=== PATIENT | male | born 1975 | race Two or more races ===

== ENCOUNTER 2019-05-02 11:08 | Inpatient (IN) | payer SELFPAY ==
[~2019-05-02] VITALS: Ht 190.5 cm; Wt 118.5 kg
[2019-05-02] MEDS ORDERED: SODIUM CHLORIDE 0.9% 1,000 ML IV ONE ×2 (11:21→13:15)
[2019-05-02] MEDS ORDERED: InsuLIN REG 1unit/0.01ml Soln (100units/ml) IV ONE (11:30)
[2019-05-02] MEDS ORDERED: ONDANSETRON HCL 4 MG/2 ML VIAL IV ONE (11:30)
[2019-05-02 12:00] LABS: Basophils # (auto) 0.1 uL; Basophils % (auto) 0.7 % (0.0-2.0); Eosinophils # (auto) 0.5 uL; Eosinophils % (auto) 2.8 % (0.0-7.0); Hematocrit 42.9 % (41.0-53.0); Lymphocytes # (auto) 0.9 uL; Lymphocytes % (auto) 5.8 % (10.0-50.0); Mean Corpuscular Hemoglobin 29.2 pg (28.0-32.0); Mean Corpuscular Hgb Conc. 32.7 g/dL (32.0-36.0); Mean Corpuscular Volume 89.4 fL (80.0-100.0); Monocytes # (auto) 1.2 uL; Monocytes % (auto) 7.4 % (0.0-12.0); Neutrophils # (auto) 13.5 uL; Neutrophils % (auto) 83.3 % (37.0-80.0); Platelet Count (auto) 371 10^3/uL (140-450); Red Cell Distribution Width 13.6 % (11.8-14.3); White Blood Cell 16.2 10^3/uL (4.4-10.8)
[2019-05-02 12:18] LABS: Calcium 8.2 mg/dL (8.5-10.1); Potassium 4.4 mmol/L (3.5-5.1)
[2019-05-02 12:23] LABS: BUN/Creatinine Ratio 16.7; Bilirubin, Total 0.4 mg/dL (0.2-1.0); Total Protein 7.5 g/dL (6.4-8.2)
[2019-05-02 12:31] LABS: Urine Bacteria NONE SEEN /hpf (None Seen); Urine Blood 1+ /uL (Negative); Urine Budding Yeast OCCASIONAL /hpf (None Seen); Urine Hyaline Cast FEW /lpf (0 - 2); Urine Mucus FEW (None Seen); Urine Specific Gravity 1.025 (1.001-1.035); Urine WBC 1 /hpf (0 - 3)
[2019-05-02] MEDS ORDERED: InsuLIN R (HUMAN) 100 UNITS in SODIUM CHL 0.9% 99 ML IV SCH (13:02)
[2019-05-02] MEDS ORDERED: DEXTROSE (50%) 50ML SYRG IV PRN ×2 (13:15→15:30)
[2019-05-02] MEDS ORDERED: ACCU-CHEK COMFORT CURVE STRIP VI SCH (13:30)
[2019-05-02] MEDS ORDERED: traMADol HCL 50 MG TAB PO PRN (15:30)
[2019-05-02] MEDS ORDERED: ALBUTEROL SULF 2.5 MG/0.5ML(0.5%) NEB SOLN NEB PRN (15:30)
[2019-05-02] MEDS ORDERED: cefTRIAXone 1GM/50ML D5W 50 ML IV ONE (15:30)
[2019-05-02] MEDS ORDERED: AZITHROMYCIN 500MG/ 250ML 250 ML IV ONE (15:30)
[2019-05-02] MEDS ORDERED: MORPHINE SULF INJ 2 MG/ML SYRINGE 1ML IV PRN (15:30)
[2019-05-02] MEDS ORDERED: NITROGLYCERIN 0.4 MG SL TAB SL PRN (15:30)
[2019-05-02] MEDS ORDERED: TEMAZEPAM 15 MG CAP PO PRN (15:30)
[2019-05-02] MEDS: InsuLIN R (HUMAN) 100 UNITS in SODIUM CHL 0.9% 99 ML IV SCH ×3 (15:34→18:37)
[2019-05-02] MEDS: SODIUM CHLORIDE 0.9% 1,000 ML IV SCH ×3 (15:35→21:32)
[2019-05-02] MEDS ORDERED: VANCOMYCIN PER PHARMACY 0 MG IV SCH (15:45)
[2019-05-02] MEDS ORDERED: VANCOMYCIN 1GM/250ML 250 ML IV ONE (15:45)
[2019-05-02] MEDS: ACETAMINOPHEN 500 MG TAB PO PRN (16:03)
[2019-05-02] MEDS: ACCU-CHEK COMFORT CURVE STRIP VI SCH ×5 (16:52→22:34)
[2019-05-02 17:20] LABS: BUN/Creatinine Ratio 14.3; Calcium 7.2 mg/dL (8.5-10.1)
[2019-05-02] MEDS: LEVOFLOXACIN 500MG 100 ML IV SCH (18:22)
[2019-05-02] MEDS ORDERED: diphenhdrAMINE HCL 50 MG/1 ML VL IV ONE (18:45)
[2019-05-02] MEDS ORDERED: methylPREDNISolone SOD SUCC 40 MG/ML VL IV ONE (18:45)
[2019-05-02] MEDS: ALBUTEROL SULF 2.5 MG/0.5ML(0.5%) NEB SOLN NEB SCH (19:10)
[2019-05-02] MEDS ORDERED: SODIUM CHLORIDE 0.9% 1,000 ML IV SCH (19:23)
[2019-05-02 21:41] LABS: BUN/Creatinine Ratio 16.2; Calcium 7.4 mg/dL (8.5-10.1); Potassium 3.9 mmol/L (3.5-5.1)
[2019-05-02] MEDS: CLINDAMYCIN 600MG IV 50 ML IV SCH (22:34)
[2019-05-02 22:36] VITALS: BP 121/75
[2019-05-03] MEDS: ACCU-CHEK COMFORT CURVE STRIP VI SCH ×16 (00:19→22:42)
[2019-05-03] MEDS: ACETAMINOPHEN 500 MG TAB PO PRN ×2 (00:48→20:40)
[2019-05-03] MEDS: ALBUTEROL SULF 2.5 MG/0.5ML(0.5%) NEB SOLN NEB SCH ×4 (01:08→18:18)
[2019-05-03] MEDS: SODIUM CHLORIDE 0.9% 1,000 ML IV SCH ×2 (04:22→10:31)
[2019-05-03] MEDS: CLINDAMYCIN 600MG IV 50 ML IV SCH (05:14)
[2019-05-03 05:22] LABS: Basophils # (auto) 0.1 uL; Eosinophils # (auto) 0.1 uL; Eosinophils % (auto) 0.4 % (0.0-7.0); Hematocrit 42.3 % (41.0-53.0); Lymphocytes # (auto) 0.7 uL; Lymphocytes % (auto) 4.8 % (10.0-50.0); Mean Corpuscular Hemoglobin 29.3 pg (28.0-32.0); Mean Corpuscular Volume 88.6 fL (80.0-100.0); Monocytes # (auto) 0.4 uL; Monocytes % (auto) 2.7 % (0.0-12.0); Neutrophils # (auto) 13.4 uL; Neutrophils % (auto) 91.1 % (37.0-80.0); Platelet Count (auto) 388 10^3/uL (140-450); Red Blood Cells 4.78 10^6/uL (4.5-5.90); Red Cell Distribution Width 13.6 % (11.8-14.3); White Blood Cell 14.7 10^3/uL (4.4-10.8)
[2019-05-03 05:40] LABS: Albumin 1.7 g/dL (3.4-5.0); BUN/Creatinine Ratio 21.9; Calcium 7.9 mg/dL (8.5-10.1); Potassium 4.1 mmol/L (3.5-5.1)
[2019-05-03 05:42] LABS: Bilirubin, Total 0.3 mg/dL (0.2-1.0); Total Protein 7.2 g/dL (6.4-8.2)
[2019-05-03] MEDS ORDERED: cefTRIAXone 1GM/50ML D5W 50 ML IV SCH (09:00)
[2019-05-03] MEDS: VANCOMYCIN 1GM/250ML 250 ML IV SCH (09:04)
[2019-05-03] MEDS ORDERED: AZITHROMYCIN 500MG/ 250ML 250 ML IV SCH (10:00)
[2019-05-03 10:27] LABS: Calcium 7.7 mg/dL (8.5-10.1); Potassium 3.9 mmol/L (3.5-5.1)
[2019-05-03 10:29] LABS: BUN/Creatinine Ratio 21.7
[2019-05-03] MEDS: LEVOFLOXACIN 500MG 100 ML IV SCH (10:40)
[2019-05-03] MEDS: PANTOPRAZOLE 40 MG TAB PO SCH (10:40)
[2019-05-03] MEDS: INSULIN LANTUS (GLARGINE) 1 /0.01ml (100units/ml) SC SCH ×2 (16:32→22:53)
[2019-05-03] MEDS ORDERED: SODIUM CHLORIDE 0.9% 1,000 ML IV ONE (17:30)
[2019-05-03] MEDS: SOD CHL 0.45% WITH 20MEQ KCL 1,000 ML IV SCH (17:33)
[2019-05-03] MEDS: PIPERACILLIN-TAZOB 3.375GM 100 ML IV SCH (19:04)
[2019-05-03] MEDS ORDERED: InsuLIN R (HUMAN) 100 UNITS in SODIUM CHL 0.9% 99 ML IV SCH ×2 (19:16→21:06)
[2019-05-03] MEDS ORDERED: DEXTROSE (50%) 50ML SYRG IV PRN ×2 (19:30→21:15)
[2019-05-04] VITALS (39 sets, daily range): BP systolic 107–156; BP diastolic 61–89
[2019-05-04] MEDS: ALBUTEROL SULF 2.5 MG/0.5ML(0.5%) NEB SOLN NEB SCH ×4 (00:19→18:41)
[2019-05-04] MEDS: VANCOMYCIN 1GM/250ML 250 ML IV SCH ×3 (00:24→22:35)
[2019-05-04] MEDS: ACCU-CHEK COMFORT CURVE STRIP VI SCH ×8 (00:27→23:54)
--- NOTE | 2019-05-04 01:04 | NUR ---
Arrival note Pt arrived to ICU at 2355 via gurney and placed in room 104. Pt arrived alert and oriented x4. Received pt on insulin gtt and .45 ns with 20 MEQ k at 50 mls/hr. Pt denies pain. VS on arrival temp 99.7 oral, hr 116, rr 14, bp 154/84, Spo2 90 % on 3 lts NC. Pt has dry hacking cough. Pt attached to ICU monitor. Pt oriented to primary RN and ICU. urinal placed at bedside. Pt denies pain. IV sites benign. Belongings at bedside. Call light within reach. Bed locked and in lowest position, safety precautions in place.
[2019-05-04] MEDS: PIPERACILLIN-TAZOB 3.375GM 100 ML IV SCH ×5 (01:37→23:54)
--- NOTE | 2019-05-04 02:05 | NUR ---
DESATURATED DOWN TO HIGH 80s WITH EXERTION - INCREASED TO 4L 02 VIA NC
[2019-05-04 04:39] LABS: BUN/Creatinine Ratio 13.5; Calcium 7.5 mg/dL (8.5-10.1); Magnesium 2.1 mg/dL (1.6-2.6)
[2019-05-04 04:41] LABS: Hematocrit 42.1 % (41.0-53.0); Hemoglobin 13.7 g/dL (13.5-17.5); Mean Corpuscular Hemoglobin 28.7 pg (28.0-32.0); Mean Corpuscular Hgb Conc. 32.6 g/dL (32.0-36.0); Mean Corpuscular Volume 88.1 fL (80.0-100.0); Platelet Count (auto) 413 10^3/uL (140-450); Red Blood Cells 4.78 10^6/uL (4.5-5.90); Red Cell Distribution Width 13.5 % (11.8-14.3); White Blood Cell 15.7 10^3/uL (4.4-10.8)
[2019-05-04 04:45] LABS: Basophils % (manual) 0 (0.0-2.0); Blast Cells 0; Metamyelocytes % 0; Myelocytes % 0; Promyelocytes % 0; Reactive Lymphocytes 0
[2019-05-04] MEDS ORDERED: METF-370 PO (04:47)
[2019-05-04] MEDS ORDERED: LISI-646 PO (04:47)
--- NOTE | 2019-05-04 05:18 | NUR ---
Orders received from hospitalist to D/c insulin gtt. Start pt on low carb diet, give 50 k po and 20 meq iv. Give pt 10 units lantus x1 dose. Will carry out order.
[2019-05-04] MEDS ORDERED: DEXTROSE (50%) 50ML SYRG IV PRN (05:30)
--- NOTE | 2019-05-04 05:33 | NUR ---
Pt placed on moderate scale q6 accucheck.
--- NOTE | 2019-05-04 05:33 | NUR ---
Pt assisted OOB to bedside chair. Hr increase to 130's with ambulation.
[2019-05-04] MEDS ORDERED: POTASSIUM EFFERVESENT TAB 25 MEQ PO ONE (06:00)
[2019-05-04] MEDS ORDERED: INSULIN LANTUS (GLARGINE) 1 /0.01ml (100units/ml) SC ONE (06:00)
[2019-05-04] MEDS: InsuLIN REG 1unit/0.01ml Soln (100units/ml) SC SCH ×4 (06:00→23:58)
[2019-05-04] MEDS ORDERED: POTASSIUM CHL 20MEQ/100ML 100 ML IV ONE (06:00)
[2019-05-04 06:17] LABS: Band Neutrophils % (manual) 1; Eosinophils % (manual) 4 (0-7); Lymphocytes % (manual) 4 (10.0-50.0); Monocytes % (manual) 5 (0-12)
--- NOTE | 2019-05-04 06:22 | NUR ---
RT NOTE: PT. SWITCHED TO A 7L OXYMIZER FROM A 6L NC DUE TO PT. SAT'S ANYWHERE FROM 88%-90%. KIRBY WARNER.
--- NOTE | 2019-05-04 08:00 | NUR ---
OPENING NOTE Received patient in bed resting with eyes closed easily arousable to verbal stimuli, patient alert and oriented X 4, speech appropriate/clear, pupils reactive to light and follows simple commands. Sinus tachycardia in the the 110's, pulses palpable on upper/lower extremities with no edema observed. Nasal cannula at 7.0 liters sating in the low 90's. Abdomen soft, non tender, non distended with bowel sounds present in all quadrants. Last bowel movement 05/03/2019 per patient. Uses urinal light annabella and clear. IV to the right wrist 20g and left AC 20g: good blood return and flushes easily infusing .45NS with 20 MEQ of KCL at 50ml/hr. Skin intact. Call light within reach and bed at lowest position. Will continue to monitor patient closely. Addendum: 05/04/19 at 1056 by BRANDIE RESENDIZ RN Temperature at this time 101.9 cooling measure applied and will give Tylenol as ordered by
--- NOTE | 2019-05-04 08:30 | NUR ---
Received phone call from Dr. Acevedo for update on patient, updated given and received new orders to place patient on high flow to prevent respiratory exertion. Patient is compensating. RT Sheryl will be notified of new orders.
--- NOTE | 2019-05-04 08:30 | NUR ---
NUTRITION Patient tolerated breakfast ate 100% independently. Will continue to monitor patient.
[2019-05-04] MEDS: ACETAMINOPHEN 500 MG TAB PO PRN ×2 (08:56→18:47)
--- NOTE | 2019-05-04 09:00 | NUR ---
MD Dr. Car at bedside updated on patient condition with new orders, this RN to input into system. MD spoke to patient regarding plan of care and questions/concerns answered by MD.
--- NOTE | 2019-05-04 09:20 | NUR ---
RESPIRATORY RT Sheryl placed patient on high flow nasal cannula per MD orders at FIO2 40% and 35 liters sating 94%. Will continue to monitor patient for respiratory distress.
--- NOTE | 2019-05-04 09:40 | NUR ---
RADIOLOGY Called and spoke to Marisol from radiology regarding chest x-ray was ordered this am and has not been done yet. Marisol states " there is no robotic maintenance technician to help with routine x-rays and will come to do x-ray once a tech is here to help."
--- NOTE | 2019-05-04 10:15 | NUR ---
TEMPERATURE Re-checked temperature after giving Tylenol and starting cooling measures temperature is now 98.5 orally. Will continue to monitor patient closely.
[2019-05-04] MEDS: PANTOPRAZOLE 40 MG TAB PO SCH (10:16)
[2019-05-04] MEDS ORDERED: cloNIDine HCL 0.1 MG TAB PO PRN (10:30)
--- NOTE | 2019-05-04 10:30 | NUR ---
ELIMINATION Patient was able to void in the urinal: 650 light annabella and clear urine.
--- NOTE | 2019-05-04 12:05 | NUR ---
MD Dr. Acevedo at bedside updated on patient condition with no new orders. MD spoke to patient regarding plan of care and questions/concerns answered by MD.
--- NOTE | 2019-05-04 12:40 | NUR ---
RADIOLOGY oil processing technician at bedside to obtain chest x-ray. Dr. Acevedo aware of results.
--- NOTE | 2019-05-04 13:15 | NUR ---
NUTRITION Patient tolerated lunch ate 100% independently. Will continue to monitor patient.
--- NOTE | 2019-05-04 13:45 | NUR ---
ELIMINATION Patient was able to void in urinal 500 of light annabella/clear urine.
[2019-05-04] MEDS: SOD CHL 0.45% WITH 20MEQ KCL 1,000 ML IV SCH (13:57)
--- NOTE | 2019-05-04 14:24 | NUR ---
ECHO resident care technician at bedside to obtain study.
--- NOTE | 2019-05-04 17:00 | NUR ---
REPORT Report given to Aleida ORR who will continue plan of care once patient arrives to room 265.
--- NOTE | 2019-05-04 17:50 | NUR ---
RESPIRATORY Paged Felton RT to room 104 to transfer patient to room 265 in [facility] with high flow. RT Felton states " to place patient on oximizer at 8 liters and will be up to change him back to high flow." Charge nurse Sukumar bone.
--- NOTE | 2019-05-04 17:53 | NUR ---
TRANSFERRED Patient transferred to room 265 via [facility] bed accompanied by Charge nurse Sukumar and Derrek GAVIN. Patient connected to portable fur drummer and oxygen. All belongs sent with patient.
--- NOTE | 2019-05-04 18:00 | NUR ---
[place] received to [facility] from ICU via hospital bed on furnace charger, and portable 02. Patient connected to unit monitoring and oxygen, and weighed by bedscale. Patient awake and alert. No S/S of SOB/pain noted. Patient on 8 LPM oxygen via oxymizer, saturation 93%. See interventions for complete assessment. Patient oriented to Bess agarwal RN, unit, room, bed, and unit policies regarding patient care and visiting hours. All questions and concerns addressed, patient verbalized understanding. Bed locked on low position, side rails up x2, bed alarms on at all times, call polo within reach, instructed to call for needed assistance.
--- NOTE | 2019-05-04 18:10 | NUR ---
Rapid influenza A and B swab sent to lab.
--- NOTE | 2019-05-04 18:35 | NUR ---
Patient switch to Hi Flow oxygen 45 LPM, 60% FIO2 from 8 LPM oxymizer, saturation 92%. Will continue to monitor.
--- NOTE | 2019-05-04 18:42 | NUR ---
Respiratory note: ALBUTEROL HELD AT THIS TIME DUE TO TACHYCARDIA HR 141. NO DISTRESS NOTED AT THIS TIME
--- NOTE | 2019-05-04 18:47 | NUR ---
Patient's temperature 100.6 F, cooling measures done, Tylenol PRN given. Will continue to monitor.
--- NOTE | 2019-05-04 20:10 | NUR ---
Opening Shift Note Assumed care of patient, awake and alert. Instructed on POC and to call for assist PRN, will continue to monitor for changes Q1hr and PRN.Family at bedside instructed on POC and patient status. All questions and concerns addressed.
[2019-05-04] MEDS ORDERED: VANCOMYCIN 1GM/250ML 250 ML IV SCH (22:00)
[2019-05-04] MEDS: INSULIN LANTUS (GLARGINE) 1 /0.01ml (100units/ml) SC SCH (22:35)
[2019-05-05] VITALS (13 sets, daily range): BP systolic 112–148; BP diastolic 60–92
--- NOTE | 2019-05-05 | NUR ---
LINEN CHANGE COMPLETE LINEN CHANGE DONE AND NEW GOWN PLACED ON PATIENT.
--- NOTE | 2019-05-05 00:30 | NUR ---
IV insertion IV access obtained, via clean sterile technique by inserting 22 gauge catheter at right hand after 1 attempt. IV secured properly. No trauma to site. Patient tolerated well. NOTE: left AC IV accidentally pulled out by patient, catheter fully intact and pressure dressing applied.
[2019-05-05] MEDS: ALBUTEROL SULF 2.5 MG/0.5ML(0.5%) NEB SOLN NEB SCH ×4 (00:31→18:23)
--- NOTE | 2019-05-05 00:47 | NUR ---
Respiratory note: CHANGED PT WATER FOR HFNC AT THIS TIME. NO COMPLICATIONS.
[2019-05-05 05:40] LABS: Basophils # (auto) 0.1 uL; Basophils % (auto) 0.5 % (0.0-2.0); Eosinophils # (auto) 1.1 uL; Eosinophils % (auto) 9.9 % (0.0-7.0); Hematocrit 39.2 % (41.0-53.0); Hemoglobin 13.2 g/dL (13.5-17.5); Lymphocytes # (auto) 0.8 uL; Lymphocytes % (auto) 7.6 % (10.0-50.0); Mean Corpuscular Hemoglobin 29.2 pg (28.0-32.0); Mean Corpuscular Hgb Conc. 33.7 g/dL (32.0-36.0); Mean Corpuscular Volume 86.7 fL (80.0-100.0); Monocytes # (auto) 0.7 uL; Monocytes % (auto) 6.1 % (0.0-12.0); Neutrophils # (auto) 8.2 uL; Neutrophils % (auto) 75.9 % (37.0-80.0); Nucleated Red Blood Cells % 0.1 %; Platelet Count (auto) 378 10^3/uL (140-450); Red Blood Cells 4.52 10^6/uL (4.5-5.90); Red Cell Distribution Width 13.7 % (11.8-14.3); White Blood Cell 10.8 10^3/uL (4.4-10.8)
[2019-05-05] MEDS: VANCOMYCIN 1GM/250ML 250 ML IV SCH ×3 (05:48→20:48)
[2019-05-05 05:55] LABS: Albumin 1.3 g/dL (3.4-5.0); Calcium 7.3 mg/dL (8.5-10.1); Potassium 3.3 mmol/L (3.5-5.1)
[2019-05-05] MEDS: ACCU-CHEK COMFORT CURVE STRIP VI SCH ×4 (06:05→23:42)
[2019-05-05 06:07] LABS: BUN/Creatinine Ratio 10.3; Bilirubin, Total 0.3 mg/dL (0.2-1.0)
[2019-05-05] MEDS: InsuLIN REG 1unit/0.01ml Soln (100units/ml) SC SCH ×4 (06:10→23:42)
--- NOTE | 2019-05-05 06:29 | NUR ---
PATIENT HAD A QUESTIONS REGARDING BEING ABLE TO SWITCH TO REGULAR NASAL CANNULA FOR BREAKFAST PATIENT WAS ADVISED IT WOULD NOT BE POSSIBLE DUE TO TACHYPNEA AND OCCASIONAL DROP IN SPO2 ON HIGH FLOW NC PATIENT WAS INFORMED OF THE RISKS INCLUDING INTUBATION AND EDUCATED ON BREATHING TECHNIQUES PATIENT VERBALIZED UNDERSTANDING
[2019-05-05] MEDS: PIPERACILLIN-TAZOB 3.375GM 100 ML IV SCH ×4 (06:54→23:42)
--- NOTE | 2019-05-05 07:28 | NUR ---
CARE ENDORSED TO DAY SHIFT RN JOSH. PATIENT RESTING IN BED ON HIGH FLOW NC. SPO2 92% HR 118 RR 24.NO S/S OF DISTRESS OR SOB.
--- NOTE | 2019-05-05 08:00 | NUR ---
Opening Shift Note Assumed care of patient, awake and alert, sitting up onthe bed, watching TV. No S/S of distress or pain, on HFNC 60 LPM with FiO2 70%. Instructed on POC and to call for assist PRN, will continue to monitor for changes Q1hr and PRN.
--- NOTE | 2019-05-05 08:10 | NUR ---
Breakfast tray provided, patient sitting on the bed for having breakfast.
--- NOTE | 2019-05-05 08:35 | NUR ---
Patient requested more sugar, encouraging patient to make aware about diet control, patient verbalized understanding and will try, patient has glucometer at home as well.
[2019-05-05] MEDS: SOD CHL 0.45% WITH 20MEQ KCL 1,000 ML IV SCH (08:56)
[2019-05-05] MEDS: PANTOPRAZOLE 40 MG TAB PO SCH (09:23)
--- NOTE | 2019-05-05 10:10 | NUR ---
Patient took the HFNC out, stated that the flow is too high, made him has a headache and tear and he wants a break from it, room air O2 saturation 85%, RT at the bedside. Changed HFNC to O2 80% with 55 LPM, will continue to monitor and care.
[2019-05-05] MEDS ORDERED: LORazepam 0.5 MG TAB PO PRN (11:00)
[2019-05-05] MEDS ORDERED: POTASSIUM EFFERVESENT TAB 25 MEQ PO ONE (11:00)
--- NOTE | 2019-05-05 11:20 | NUR ---
Dr. Car at the bedside, seen and examined patient at this time, plan of care discussed with patient, will continue antibiotic, received new orders, patient made aware.
[2019-05-05] MEDS: Glucerna Carbsteady SHAKE Vanilla 8oz PO SCH ×2 (11:56→17:34)
[2019-05-05] MEDS: SOD CHL 0.9%/ KCL 20MEQ 1,000 ML IV SCH (11:56)
[2019-05-05] MEDS: ACETAMINOPHEN 500 MG TAB PO PRN (13:31)
--- NOTE | 2019-05-05 13:50 | NUR ---
Received a call from Dr. Acevedo, received order for ABG, and also RT at the bedside for ABG.
--- NOTE | 2019-05-05 14:19 | NUR ---
Dr. Acevedo made aware about ABG result. Received order for BIPAP PRN I:E 14:6 RR 12 BPM, FiO2 to keep O2 saturation >92%, if on BIPAP need to check ABG in 1 hour after on BIPAP, RT also at the bedside, made aware.
--- NOTE | 2019-05-05 14:20 | NUR ---
Increased FiO2 to 90% with HFNC 55 LPM.
--- NOTE | 2019-05-05 16:13 | NUR ---
Dr. Acevedo at the bedside, RT at the bedside, MD made aware about ABG result, patient has fever BT 102.2, MD made aware , received order for CXR for tomorrow. Will continue BIPAP and switch to HFNC O290% flow 55LPM when eating. Patient made aware.
--- NOTE | 2019-05-05 17:40 | NUR ---
Patient took out the BIPAP mask without calling a nurse, his at the bedside, patient doing mouth care, place patient with HFNC 55 LPM with FiO2 90%, O2 saturation 90-92%. Will continue to monitor and care.
--- NOTE | 2019-05-05 18:00 | NUR ---
Dinner tray provided. Patient sitting up on the for having Dinner while having HFNC, will continue to monitor and care. HR 110-120/min, RR 30 /min, O2 saturation 90-94%.
--- NOTE | 2019-05-05 19:05 | NUR ---
OPENING SHIFT RECEIVED REPORT FROM DAY SHIFT RN. ASSUMED CARE OF PATIENT. PATIENT IN BED WATCHING TV WITH NO SIGNS OR SYMPTOMS OF SOB, PAIN OR DISTRESS. CURRENTLY ON HIGH FLOW NASAL CANNULA 55L 90%, 02 SAT - 93%. RIGHT FOREARM AND RIGHT HAND IV - CLEAN/DRY/INTACT. UPDATED PATIENT ON PLAN OF CARE. REPOSITIONED FOR COMFORT. WILL CONTINUE TO MONITOR.
--- NOTE | 2019-05-05 21:35 | NUR ---
HIGH FLOW PATIENT REQUESTED TO BE TAKEN OFF BIPAP. PLACED ON HIGH FLOW NASAL CANNULA 55L 90% FI02. WILL CONTINUE TO MONITOR.
[2019-05-05] MEDS: INSULIN LANTUS (GLARGINE) 1 /0.01ml (100units/ml) SC SCH (22:58)
[2019-05-06] VITALS (14 sets, daily range): BP systolic 98–133; BP diastolic 58–88
[2019-05-06] MEDS: ALBUTEROL SULF 2.5 MG/0.5ML(0.5%) NEB SOLN NEB SCH ×4 (00:20→20:39)
[2019-05-06] MEDS: VANCOMYCIN 1GM/250ML 250 ML IV SCH ×4 (02:59→21:30)
--- NOTE | 2019-05-06 03:15 | NUR ---
BIPAP PATIENT REMOVED BIPAP AND REFUSED TO BE PLACED BACK ON BIPAP. EDUCATED PATIENT ON PROS AND CONS OF BIPAP USAGE. PLACED PATIENT BACK ON HIGH FLOW NASAL CANNULA. WILL CONTINUE TO MONITOR.
[2019-05-06] MEDS: PIPERACILLIN-TAZOB 3.375GM 100 ML IV SCH ×3 (05:33→17:28)
[2019-05-06] MEDS: ACCU-CHEK COMFORT CURVE STRIP VI SCH ×3 (05:46→17:29)
[2019-05-06] MEDS: InsuLIN REG 1unit/0.01ml Soln (100units/ml) SC SCH ×3 (05:46→17:29)
[2019-05-06 06:02] LABS: Calcium 7.2 mg/dL (8.5-10.1); Potassium 3.5 mmol/L (3.5-5.1)
[2019-05-06 06:04] LABS: BUN/Creatinine Ratio 4.9
[2019-05-06 06:14] LABS: Basophils # (auto) 0 uL; Basophils % (auto) 0.3 % (0.0-2.0); Eosinophils # (auto) 0.9 uL; Eosinophils % (auto) 8.3 % (0.0-7.0); Hematocrit 36.8 % (41.0-53.0); Hemoglobin 12.6 g/dL (13.5-17.5); Lymphocytes % (auto) 9.6 % (10.0-50.0); Mean Corpuscular Hemoglobin 29.9 pg (28.0-32.0); Mean Corpuscular Hgb Conc. 34.2 g/dL (32.0-36.0); Mean Corpuscular Volume 87.3 fL (80.0-100.0); Monocytes # (auto) 0.6 uL; Neutrophils # (auto) 8.2 uL; Neutrophils % (auto) 75.8 % (37.0-80.0); Nucleated Red Blood Cells % 0.1 %; Platelet Count (auto) 388 10^3/uL (140-450); Red Blood Cells 4.22 10^6/uL (4.5-5.90); Red Cell Distribution Width 13.6 % (11.8-14.3); White Blood Cell 10.8 10^3/uL (4.4-10.8)
--- NOTE | 2019-05-06 07:15 | NUR ---
END OF SHIFT REPORT GIVEN TO DAY SHIFT RN. CARE ENDORSED.
--- NOTE | 2019-05-06 07:45 | NUR ---
Opening Shift Note Assumed care of patient, awake and alert. No S/S of distress/SOB or pain, on BIPAP I:E 14:6, RR 112, O2 60%, STV around 600-800, RR 20-28/min, O2 saturation 90-95%. Instructed on POC and to call for assist PRN, will continue to monitor for changes Q1hr and PRN.
[2019-05-06] MEDS: Glucerna Carbsteady SHAKE Vanilla 8oz PO SCH ×3 (07:49→17:28)
[2019-05-06] MEDS: SOD CHL 0.9%/ KCL 20MEQ 1,000 ML IV SCH (07:49)
--- NOTE | 2019-05-06 08:10 | NUR ---
Breakfast tray provided, paged RT for disconnect BIPAP for having breakfast, RT at the bedside, connect patient with HFNC 55 LPM with FiO2 90%, will continue to monitor.
--- NOTE | 2019-05-06 08:55 | NUR ---
Patient had breakfast 100%, no N/V noted. HR 110, RR 32-40 /min, O2 saturation 94%, BT 100.2 Axillary, 99.3 via oral.
[2019-05-06] MEDS: PANTOPRAZOLE 40 MG TAB PO SCH (09:16)
[2019-05-06] MEDS: ACETAMINOPHEN 500 MG TAB PO PRN (09:17)
--- NOTE | 2019-05-06 10:59 | NUR ---
Patient lying on the bed, his at the bedside, patient talking on the phone, no SOB noted. On HFNC 55 LPM, FiO2 90%, RR 20-26/min, O2 saturation 91-94%, HR 100-105/min, SBP 110-120 mmHg.
[2019-05-06] MEDS ORDERED: FUROSEMIDE 40 MG/4 ML VIAL IV ONE (12:15)
[2019-05-06] MEDS ORDERED: POTASSIUM CHL 20 Meq TABLET PO ONE (12:15)
[2019-05-06] MEDS ORDERED: ENOXAPARIN SOD 40 MG/0.4 ML SYRINGE SC ONE (12:30)
[2019-05-06] MEDS ORDERED: DEXTROSE (50%) 50ML SYRG IV PRN (12:30)
--- NOTE | 2019-05-06 12:30 | NUR ---
Dr. Moreira at bedside, seen and examined patient at his time, plan of care discussed with patient and his also at the bedside, answer all the questions, received new orders, Lovenox, changed insulin scale and Lantus doses. Off IV fluid. Patient will continue HFNC per Dr. Acevedo (HFNC 45 LPM, FiO2 80% at this time.) Patient and his made aware about the plan.
[2019-05-06] MEDS: INSULIN LANTUS (GLARGINE) 1 /0.01ml (100units/ml) SC SCH ×2 (12:57→22:12)
--- NOTE | 2019-05-06 13:15 | NUR ---
Patient had 100% of Lunch, went to bedside commode, no BM at this time.
[2019-05-06] MEDS: PROMETHAZINE HCL 25 MG/ML 1ML IV PRN (14:00)
--- NOTE | 2019-05-06 14:00 | NUR ---
Sent urine sample to Lab.
[2019-05-06 14:04] LABS: Urine Bacteria NONE SEEN /hpf (None Seen); Urine Blood Negative /uL (Negative); Urine Specific Gravity 1.004 (1.001-1.035); Urine WBC <1 /hpf (0 - 3)
--- NOTE | 2019-05-06 14:05 | NUR ---
Came back from Lunch, found patient sitting at the edge of the bed after vomiting, HR 140-150/min, RR 40-50, patient stated that feeling cold, RT at the bedside changing HFNC cannular due to covered with gastric content. Medication given for N/V. Brought patient back to the bed, BT 98.8 F, Blood sugar 311. Will continue to monitor and care.
--- NOTE | 2019-05-06 14:41 | NUR ---
HR 140, RR 40-50 /min, re check BT 102.6 F, BP 111/67 mmHg, called and talked to Dr. Moreira made aware that patient start coughing after Lunch then vomiting, firstly BT 98.8 F, then right now has fever. Received new orders, patient made aware. Will carry out.
[2019-05-06] MEDS: ACETAMINOPHEN 325 MG TAB PO PRN (14:49)
--- NOTE | 2019-05-06 15:11 | NUR ---
Nutrition Assessment Notes please see attached link for complete assessment Est. Needs ABW 106 [id number] kcal (23-25 kcal/kgBW), 106-116 gms pro (1.0-1.1 gms/kgBW). Will continue to monitor pertinent labs and reassess nutrient need prn Addendum: 05/06/19 at [address] Amended: Links added.
--- NOTE | 2019-05-06 15:12 | NUR ---
Dr. Acevedo at the bedside, seen and examined patient at his time, seen CXR from this morning, made aware that patient already started Lasix as order, Off IV, still have fever. Will continue to monitor, if patient required FiO2 of HFNC > or = 90%, patient possible to be connected to BIPAP as previous setting
--- NOTE | 2019-05-06 16:30 | NUR ---
BT 99.6 at this time, HR 100-105/min, able to take a nap, RR 30-40 /min, O2 saturation 94-96%, RT at the bedside. Patient on HFNC 70% with 45 LPM, will continue to monitor and care.
[2019-05-06] MEDS: FUROSEMIDE 20 MG/2 ML VIAL IV SCH (17:28)
--- NOTE | 2019-05-06 18:47 | NUR ---
Patient had 100% of Dinner, no N/V noted at this time. continue HFNC 70% 55 LPM, RR 28-32/min, O2 saturation 92-93%, will continue to monitor and care.
--- NOTE | 2019-05-06 19:15 | NUR ---
OPENING SHIFT RECEIVED REPORT FROM DAY SHIFT RN. ASSUMED CARE OF PATIENT. PATIENT IN BED WATCHING TV WITH NO SIGNS OR SYMPTOMS OF SOB, PAIN OR DISTRESS. CURRENTLY ON HIGH FLOW NASAL CANNULA 45L 70% FI02, 02 SAT - 92%. RIGHT HAND AND RIGHT FOREARM IV - CLEAN/DRY/INTACT. UPDATED PATIENT ON PLAN OF CARE. REPOSITIONED FOR COMFORT. BED IN LOWEST POSITION, SIDE RAILS UP X2, CALL LIGHT WITHIN REACH. WILL CONTINUE TO MONITOR.
[2019-05-06] MEDS ORDERED: INSULIN LANTUS (GLARGINE) 1 /0.01ml (100units/ml) SC SCH (22:00)
[2019-05-07] VITALS (13 sets, daily range): BP systolic 90–132; BP diastolic 51–83
[2019-05-07] MEDS: PIPERACILLIN-TAZOB 3.375GM 100 ML IV SCH ×4 (00:34→17:45)
[2019-05-07] MEDS: InsuLIN REG 1unit/0.01ml Soln (100units/ml) SC SCH ×4 (00:34→17:46)
[2019-05-07] MEDS: ALBUTEROL SULF 2.5 MG/0.5ML(0.5%) NEB SOLN NEB SCH ×5 (00:44→23:49)
[2019-05-07] MEDS: VANCOMYCIN 1GM/250ML 250 ML IV SCH ×2 (03:35→09:14)
[2019-05-07 05:06] LABS: Basophils # (auto) 0.1 uL; Eosinophils # (auto) 1.1 uL; Eosinophils % (auto) 11.3 % (0.0-7.0); Hemoglobin 13.2 g/dL (13.5-17.5); Lymphocytes % (auto) 10.5 % (10.0-50.0); Mean Corpuscular Hemoglobin 29.4 pg (28.0-32.0); Mean Corpuscular Hgb Conc. 33.9 g/dL (32.0-36.0); Mean Corpuscular Volume 86.8 fL (80.0-100.0); Monocytes # (auto) 0.6 uL; Monocytes % (auto) 6.2 % (0.0-12.0); Neutrophils # (auto) 6.7 uL; Nucleated Red Blood Cells % 0.1 %; Platelet Count (auto) 402 10^3/uL (140-450); White Blood Cell 9.4 10^3/uL (4.4-10.8)
[2019-05-07 05:27] LABS: Calcium 7.4 mg/dL (8.5-10.1); Potassium 3.3 mmol/L (3.5-5.1)
[2019-05-07] MEDS: ACCU-CHEK COMFORT CURVE STRIP VI SCH ×4 (06:00→17:46)
[2019-05-07] MEDS: FUROSEMIDE 20 MG/2 ML VIAL IV SCH (06:11)
--- NOTE | 2019-05-07 07:45 | NUR ---
Opening Shift Note Assumed care of patient, awake and alert. SOB on exertion, patient on Hi flow oxygen 45 LPM, 70% FIO2, saturation 90%. No S/S of pain. See interventions for complete assessment. Bed locked on low position, side rails up x2, bed alarms on at all times, call polo within reach, instructed on POC and to call for assist PRN, will continue to monitor for changes Q1hr and PRN.
--- NOTE | 2019-05-07 08:13 | NUR ---
Patient's Lenor at bedside, updated on patient's status and POC. Family verbalized understanding. All questions and concerns addressed.
[2019-05-07] MEDS: ENOXAPARIN SOD 40 MG/0.4 ML SYRINGE SC SCH (09:15)
[2019-05-07] MEDS: Glucerna Carbsteady SHAKE Vanilla 8oz PO SCH ×3 (09:15→17:45)
[2019-05-07] MEDS: PANTOPRAZOLE 40 MG TAB PO SCH (09:15)
[2019-05-07] MEDS: INSULIN LANTUS (GLARGINE) 1 /0.01ml (100units/ml) SC SCH ×2 (09:16→22:26)
[2019-05-07] MEDS ORDERED: POTASSIUM CHL 20 Meq TABLET PO SCH (10:00)
--- NOTE | 2019-05-07 11:29 | NUR ---
Dr Gould at bedside, updated on patient's status. Patient seen and examined. Will carry out new orders.
[2019-05-07] MEDS ORDERED: POTASSIUM CHL 20 Meq TABLET PO ONE (11:30)
--- NOTE | 2019-05-07 11:30 | NUR ---
Adjusted Hi flow settings to 55 LPM, 60% FIO2, patient tolerating well, oxygen saturation 90%. Will continue to monitor.
[2019-05-07] MEDS ORDERED: FLUCONAZOLE 100 MG TAB PO ONE (11:45)
--- NOTE | 2019-05-07 14:40 | NUR ---
Dr Acevedo at bedside, updated on patient's status. Patient seen and examined. No new orders at this time.
--- NOTE | 2019-05-07 15:50 | NUR ---
Paged Dr Gould and called back, inquired if Vancomycin can be discontinued per Dana Pool MD states "Yes, he's not growing anything, go ahead and discontinue Vancomycin." Orders read back and verified.
--- NOTE | 2019-05-07 16:00 | NUR ---
Patient placed on BIPAP per request, 30/11, rate 12, FIO2 60%. Patient oxygen saturation 96%. Will continue to monitor.
--- NOTE | 2019-05-07 16:00 | NUR ---
Patient's temperature 100.8 orally, cooling measures done. Will continue to monitor.
--- NOTE | 2019-05-07 16:13 | NUR ---
Assessment Pt is a 44 yr old alert and oriented male. Pt lives near [place], with and daughter. 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 Prior to admit, pt was ambulatory and independent with ADL's. Pt's was bedside and stated that she will help extra in the home if need be, until her is feeling better. Pt admitted with pneumonia. Pt stated that he currently has no insurance, FRANK referred pt to [facility] for insurance assistance. Pt is interested in receiving paperwork for AD, FRANK provided it. Pt will transport pt home from hospital. Pt stated that pt might need home 02 upon d/c. Further needs will be assessed closer to d/c. Addendum: 05/07/19 at 1621 by GENARO DUBOIS Amended: Links added.
--- NOTE | 2019-05-07 16:51 | NUR ---
Respiratory note: PT PLACED BACK ON HIGH FIO2 PER PT REQUEST.RN AWARE OF CHANGE.
--- NOTE | 2019-05-07 17:15 | NUR ---
Patient's temperature 98.2 orally. Will continue to monitor.
[2019-05-07] MEDS: Pro-Stat SF 30ml Vanilla PO SCH (17:46)
--- NOTE | 2019-05-07 19:15 | NUR ---
OPENING SHIFT RECEIVED REPORT FROM DAY SHIFT. ASSUMED CARE OF PATIENT. PATIENT IN BED WATCHING TV WITH NO SIGNS OR SYMPTOMS OF SOB, PAIN OR DISTRESS. CURRENTLY ON HIGH FLOW 55L 65% FI02, 02 SAT - 95%. RIGHT HAND AND RIGHT FOREARM IV - CLEAN/DRY/INTACT. REPOSITIONED FOR COMFORT. UPDATED PATIENT ON PLAN OF CARE. BED IN LOWEST POSITION, SIDE RAILS UP X2, CALL LIGHT WITHIN REACH. WILL CONTINUE TO MONITOR.
--- NOTE | 2019-05-07 19:38 | NUR ---
Respiratory note: PT PLACED ON BIPAP PER PT REQUEST ON THE ABOVE STATED SETTINGS. PT STATED THAT HE ISN'T FEELING NAUSEOUS ANYMORE AND WANTS A BREAK FROM THE HIGH FLOW NASAL CANNULA. BIPAP IS PLUGGED INTO RED OUTLET, AMBU BAG AT BEDSIDE, ALARMS CHECKED AND AUDIBLE. PT IS WEARING A MEDIUM FACIAL MASK, NO BREAKDOWN NOTED. INLINE HHN TX GIVEN. TX TOLERATED WELL. BREATH SOUNDS WERE DIMINISHED BILATERALLY. PT AWARE TO CALL FOR RT IF HE WISHES TO COME OFF.
--- NOTE | 2019-05-07 20:33 | NUR ---
Respiratory note: PT PLACED BACK ON HIGH FLOW NASAL CANNULA DUE TO PT FEELING NAUSEOUS ON THE BIPAP. THE PT'S NOSE BEGAN TO BLEED SO I CONNECTED AN AEROSOL MASK TO THE HIGH FLOW CIRCUIT. IT IS WORKING FINE AT THIS TIME AND SP02 IS HOLDING AT 93%. PT SAID THE MASK FEELS BETTER AND HIS NOSE STILL HURTS.
[2019-05-07] MEDS: PROMETHAZINE HCL 25 MG/ML 1ML IV PRN (22:27)
--- NOTE | 2019-05-07 23:45 | NUR ---
HIGH FLOW AEROSOL MASK PATIENT CONTINUES TO REMOVE HIGH FLOW MASK WHILE SLEEPING. PATIENT DESATS TO 80% 02 SAT. REINFORCED EDUCATION IN REGARDS TO HIGH FLOW MASK TO PATIENT. PATIENT VERBALIZES UNDERSTANDING. MASK PLACED BACK ON PATIENT. WILL CONTINUE TO MONITOR.
[2019-05-08] VITALS (14 sets, daily range): BP systolic 96–130; BP diastolic 58–89
[2019-05-08] MEDS: PIPERACILLIN-TAZOB 3.375GM 100 ML IV SCH ×5 (00:17→23:46)
[2019-05-08] MEDS: ACCU-CHEK COMFORT CURVE STRIP VI SCH ×5 (00:18→23:40)
[2019-05-08] MEDS: InsuLIN REG 1unit/0.01ml Soln (100units/ml) SC SCH ×5 (00:18→23:46)
--- NOTE | 2019-05-08 05:20 | NUR ---
MORNING CARE PATIENT REFUSED MORNING CARE AND LINEN CHANGE AT THIS TIME. GOWN CHANGED. REPOSITIONED FOR COMFORT. WILL CONTINUE TO MONITOR.
[2019-05-08] MEDS: ALBUTEROL SULF 2.5 MG/0.5ML(0.5%) NEB SOLN NEB SCH ×3 (06:22→12:15)
[2019-05-08 07:23] LABS: Hematocrit 37.9 % (41.0-53.0); Hemoglobin 12.7 g/dL (13.5-17.5); Mean Corpuscular Hemoglobin 29.2 pg (28.0-32.0); Mean Corpuscular Hgb Conc. 33.5 g/dL (32.0-36.0); Mean Corpuscular Volume 87.1 fL (80.0-100.0); Platelet Count (auto) 407 10^3/uL (140-450); Red Blood Cells 4.35 10^6/uL (4.5-5.90); Red Cell Distribution Width 13.5 % (11.8-14.3); White Blood Cell 9.4 10^3/uL (4.4-10.8)
[2019-05-08 07:27] LABS: Basophils % (manual) 0 (0.0-2.0); Blast Cells 0; Myelocytes % 0; Promyelocytes % 0; Reactive Lymphocytes 0
[2019-05-08 07:41] LABS: Calcium 7.9 mg/dL (8.5-10.1); Potassium 3.6 mmol/L (3.5-5.1)
[2019-05-08 07:44] LABS: BUN/Creatinine Ratio 10.5
--- NOTE | 2019-05-08 07:45 | NUR ---
Opening Shift Note Assumed care of patient, awake and alert. No S/S of distress/SOB or pain. Patient on 45 LPM Hi flow oxygen, 60% FIO2, oxygen saturation 90%. RT forearm IV tender, discontinued. Bed locked on low position, side rails up x2, bed alarms on at all times, call polo within reach, instructed on POC and to call for assist PRN, will continue to monitor for changes Q1hr and PRN.
--- NOTE | 2019-05-08 07:50 | NUR ---
Patient's Lenor at bedside, updated on patient's status and POC. verbalized understanding. All questions and concerns addressed.
[2019-05-08 08:21] LABS: Band Neutrophils % (manual) 6; Eosinophils % (manual) 15 (0-7); Lymphocytes % (manual) 11 (10.0-50.0); Metamyelocytes % 1; Monocytes % (manual) 5 (0-12)
[2019-05-08] MEDS: Glucerna Carbsteady SHAKE Vanilla 8oz PO SCH ×3 (08:25→17:04)
[2019-05-08] MEDS: Pro-Stat SF 30ml Vanilla PO SCH ×2 (08:25→17:04)
[2019-05-08] MEDS: FLUCONAZOLE 100 MG TAB PO SCH (09:13)
[2019-05-08] MEDS: INSULIN LANTUS (GLARGINE) 1 /0.01ml (100units/ml) SC SCH ×2 (09:14→20:44)
[2019-05-08] MEDS: ENOXAPARIN SOD 40 MG/0.4 ML SYRINGE SC SCH (09:14)
[2019-05-08] MEDS: PANTOPRAZOLE 40 MG TAB PO SCH (09:14)
--- NOTE | 2019-05-08 11:52 | NUR ---
Dr Gould at bedside, updated on patient's. Patient seen and examined. Will carry out new orders.
[2019-05-08] MEDS ORDERED: INSULIN LANTUS (GLARGINE) 1 /0.01ml (100units/ml) SC SCH (12:00)
[2019-05-08] MEDS ORDERED: DOXYCYCLINE 100 MG TAB/CAP PO ONE (12:00)
--- NOTE | 2019-05-08 16:20 | NUR ---
Dr Acevedo at bedside, updated on patient's status. Patient seen and examined. No new orders at this time.
--- NOTE | 2019-05-08 19:55 | NUR ---
SHIFT OPENING NOTE RECEIVED PATIENT AWAKE, ALERT AND ORIENTED X4. NO SOB, PAIN OR DISTRESS NOTED. ON HIGH FLOW MASK 55L, 60% FI02.. IV RW 22G INFUSING ZOSYN. PHYSICAL ASSESSMENT COMPLETED, SEE INTERVENTIONS. INSTRUCTED ON POC AND TO CALL FOR ASSIST NEEDED. BED IS IN THE LOWEST POSITION WITH SIDE RAILS UP X2, CALL LIGHT IS WITHIN REACH.
[2019-05-08] MEDS: DOXYCYCLINE 100 MG TAB/CAP PO SCH (20:43)
[2019-05-09] VITALS (7 sets, daily range): BP systolic 103–130; BP diastolic 59–84
[2019-05-09] MEDS: ALBUTEROL SULF 2.5 MG/0.5ML(0.5%) NEB SOLN NEB SCH ×5 (00:02→23:57)
--- NOTE | 2019-05-09 00:12 | NUR ---
Respiratory note: PLACED PT ON 10L OXYMIZER AT THIS TIME POST MED NEB. PT MAINTAINING O2 SAT OF 92%
--- NOTE | 2019-05-09 04:20 | NUR ---
MORNING CARE BATH GIVEN WITH CHG WIPES. GOWN CHANGED. PARTIAL LINEN CHANGED. REPOSITIONED FOR COMFORT. WILL CONTINUE TO MONITOR.
[2019-05-09] MEDS ORDERED: SODIUM CHLORIDE 0.9 % NEB SOLN 3ML NEB ONE (05:23)
--- NOTE | 2019-05-09 06:25 | NUR ---
IV insertion IV access obtained, via clean sterile technique by inserting [20] gauge catheter at [RIGHT FOREARM] after [1] attempt(s). IV secured properly. No trauma to site. Patient tolerated well. NOTE: RIGHT WRIST IV LEAKING AND REMOVED.
[2019-05-09] MEDS: ACCU-CHEK COMFORT CURVE STRIP VI SCH ×3 (06:28→17:44)
[2019-05-09] MEDS: InsuLIN REG 1unit/0.01ml Soln (100units/ml) SC SCH ×3 (06:28→17:44)
[2019-05-09] MEDS: PIPERACILLIN-TAZOB 3.375GM 100 ML IV SCH ×3 (06:28→18:10)
--- NOTE | 2019-05-09 07:30 | NUR ---
RECEIVED PATIENT SITTING UP IN THE BED, O2 AT 8L BY THE OXYMIZER, A/O TIMES 4, DENIES PAIN STATES HE IS FEELING MUCH BETTER TODAY, RAC 18G WITH NS AT TKO, STATES HE WANTS TO GO HOME BEFORE HE STATES FEELING BAD AGAIN, STATES HE CAN USE THE URINAL
[2019-05-09] MEDS: Glucerna Carbsteady SHAKE Vanilla 8oz PO SCH ×3 (08:00→18:10)
[2019-05-09] MEDS: Pro-Stat SF 30ml Vanilla PO SCH ×2 (08:00→18:10)
--- NOTE | 2019-05-09 08:30 | NUR ---
SITTING UP IN BED EATING HIS BREAKFAST, NO HEP NEEDED
--- NOTE | 2019-05-09 08:45 | NUR ---
IN TO VISIT WITH THE PATIENT
--- NOTE | 2019-05-09 09:00 | NUR ---
HAVING BREATHING TREATMENTS BY RESPIRATORY NEEDED
--- NOTE | 2019-05-09 09:54 | NUR ---
EXPLAIN MEDICATIONS TO THE PATIENT REGARDING THE DOSAGE, USAGE, AND THE SIDE EFFECTS, VERBALIZED THAT HE UNDERSTOOD AND MEDS GIVEN ORDERED
[2019-05-09] MEDS: DOXYCYCLINE 100 MG TAB/CAP PO SCH ×2 (10:13→20:40)
[2019-05-09] MEDS: ENOXAPARIN SOD 40 MG/0.4 ML SYRINGE SC SCH (10:13)
[2019-05-09] MEDS: PANTOPRAZOLE 40 MG TAB PO SCH (10:13)
[2019-05-09] MEDS: FLUCONAZOLE 100 MG TAB PO SCH (10:13)
[2019-05-09] MEDS: INSULIN LANTUS (GLARGINE) 1 /0.01ml (100units/ml) SC SCH ×2 (10:17→20:41)
--- NOTE | 2019-05-09 10:20 | NUR ---
RT SUCTIONS PATIENT NEEDED Addendum: 05/09/19 at 1439 by Kimberly Mejia RN DISREGARD WRONG PATIENT
--- NOTE | 2019-05-09 10:50 | NUR ---
DR MOULTON IN TO SEE THE PATIENT AND NO NEW ORDERS Addendum: 05/09/19 at 1438 by Kimberly Mejia RN WRONG PATIENT DISREGARD
--- NOTE | 2019-05-09 11:20 | NUR ---
EXERCISE BANDS GIVEN TO EXERCISE HIS ARMS
--- NOTE | 2019-05-09 11:20 | NUR ---
IN TO SEE THE PATIENT
[2019-05-09] MEDS: NEUTRA-PHOS TABLET PO SCH ×2 (12:27→18:10)
--- NOTE | 2019-05-09 12:45 | NUR ---
SITTING UP IN BED EATING HIS LUNCH NO HELP NEEDED,
--- NOTE | 2019-05-09 13:00 | NUR ---
SITTING UP IN BED TALKING TO HIS
--- NOTE | 2019-05-09 14:05 | NUR ---
DR SIMS INTO SEE THE PATIENT AND WROTE FOR TRANSFER TO TELE Addendum: 05/09/19 at 1423 by Kimberly Mejia RN CHANGE TIME TO [id number]
--- NOTE | 2019-05-09 14:09 | NUR ---
LYING IN BED STATES HE IS GOING TO TAKE A NAP AT THE BEDSIDE,
--- NOTE | 2019-05-09 14:31 | NUR ---
Nutrition Follow-up Notes Wt.: 118.9 kg Pt`s sleeping with no family by bedside. per records pt with PNA sepsis. pt with no distress noted currently on CCHO 60 gm mech soft diet with prostat 1 packet bid with adequate PO of 100% x 4 per RN doc Est. Needs ABW 106 [id number] kcal (23-25 kcal/kgBW), 106-116 gms pro (1.0-1.1 gms/kgBW). Will continue to monitor pertinent labs and reassess nutrient need prn Labs: GLU 214 H, CA 7.9 L Skin: Hill scale 16, mod risk, per information security director. GI: Pt had 1 BM 05/06 per information security director. PES: Altered nutrition related lab values r/t current/chronic medical condition aeb elev A1C severe hypoalb hyperglycemia Decreased nutrient needs r/t adiposity aeb pt`s high BMI of 34.8 kg2 Will continue to monitor PO intake, pertinent labs, skin status and weight trends. F/u in 3-5 days. Additional Rec.: 1.) refer to CDE on DC. 2) continue current plan of care
--- NOTE | 2019-05-09 15:17 | NUR ---
SITTING UP IN BED WATCHING TV, AT THE BEDSIDE, DR MORRISON INTO SEE THE PATIENT
--- NOTE | 2019-05-09 15:57 | NUR ---
HAS LEFT, PATIENT WATCHING TV
--- NOTE | 2019-05-09 17:05 | NUR ---
WALKING IN THE UNIT USING THE WALKER AND WITH PT TOLERATED WELL
--- NOTE | 2019-05-09 17:39 | NUR ---
LYING IN BED WATCHING TV, NO COMPLAINTS
--- NOTE | 2019-05-09 18:30 | NUR ---
SITTING UP IN THE BED EATING HIS DINNER, O2 BY THE OXYMIZER AT 8L, A/O TIMES 4, ANTIBIOTICS INFUSING INTO THE RFA BY THE IV PUMP, USES THE URINAL , NO COMPLAINTS OF PAIN, WILL CONTINUE TO MONITOR AND GIVE REPORT TO THE NEXT SHIFT
--- NOTE | 2019-05-09 20:00 | NUR ---
SHIFT OPENING NOTE RECEIVED PATIENT AWAKE, ALERT AND ORIENTED X4. NO SOB, PAIN OR DISTRESS NOTED. ON 8L OXYMIZER. IV RFA 20G INFUSING ZOSYN. PHYSICAL ASSESSMENT COMPLETED, SEE INTERVENTIONS. INSTRUCTED ON POC AND TO CALL FOR ASSIST NEEDED. BED IS IN THE LOWEST POSITION WITH SIDE RAILS UP X2, CALL LIGHT IS WITHIN REACH.
[2019-05-10] MEDS: PIPERACILLIN-TAZOB 3.375GM 100 ML IV SCH ×4 (00:07→18:10)
[2019-05-10] MEDS: ACCU-CHEK COMFORT CURVE STRIP VI SCH ×4 (00:07→18:11)
[2019-05-10] MEDS: InsuLIN REG 1unit/0.01ml Soln (100units/ml) SC SCH ×4 (00:08→18:11)
--- NOTE | 2019-05-10 00:13 | NUR ---
REPORT GIVEN TO DARIELA ORR IN TELE ALL QUESTIONS ANSWERED.
--- NOTE | 2019-05-10 00:25 | NUR ---
[facility]EL[facility] CONNECTED TO TELE BOX AND OXYGEN. TOLERATED IT WELL. ALL BELONGINGS TAKEN WITH PATIENT.
--- NOTE | 2019-05-10 00:26 | NUR ---
Telemetry transfer from TOANShabbir Velazquez admitted on telemetry floor room 288A via wheelchair. Patient is on tele box # [id number]. Patient oriented to KIRBY Chung. Patient is awake and alert. No signs or symptoms of distress noted, patient currently denies pain. Explained plan of care to patient and to call for assistance as needed. Will continue to monitor.
[2019-05-10 05:00] VITALS: BP 127/80
[2019-05-10] MEDS: ALBUTEROL SULF 2.5 MG/0.5ML(0.5%) NEB SOLN NEB SCH ×3 (06:22→19:05)
[2019-05-10] MEDS: Pro-Stat SF 30ml Vanilla PO SCH ×2 (08:00→18:11)
[2019-05-10] MEDS: Glucerna Carbsteady SHAKE Vanilla 8oz PO SCH ×3 (08:00→18:10)
[2019-05-10] MEDS: NEUTRA-PHOS TABLET PO SCH ×3 (08:52→18:11)
[2019-05-10 09:00] VITALS: BP 120/71
[2019-05-10] MEDS: PANTOPRAZOLE 40 MG TAB PO SCH (11:19)
[2019-05-10] MEDS: FLUCONAZOLE 100 MG TAB PO SCH (11:19)
[2019-05-10] MEDS: DOXYCYCLINE 100 MG TAB/CAP PO SCH ×2 (11:20→22:15)
[2019-05-10] MEDS: ENOXAPARIN SOD 40 MG/0.4 ML SYRINGE SC SCH (11:20)
[2019-05-10] MEDS: INSULIN LANTUS (GLARGINE) 1 /0.01ml (100units/ml) SC SCH ×2 (11:20→22:15)
[2019-05-10 12:54] VITALS: BP 115/79
[2019-05-10] MEDS ORDERED: FUROSEMIDE 40 MG TAB PO ONE (14:15)
[2019-05-10 16:54] VITALS: BP 108/47
--- NOTE | 2019-05-10 19:30 | NUR ---
Opening Shift Note Assumed care of patient, awake and alert x4. No S/S of distress/SOB or pain. Call light is within reach, side rails up x2, bed is in lowest position, side rails up x2. Patient's is at bedside. Oxygen is in fusing at 10L/min via Oxymizer. Instructed on POC and to call for assist PRN. All questions and concerns answered, will continue to monitor for changes Q1hr and PRN.
[2019-05-10 22:00] VITALS: BP 100/54
[2019-05-11] MEDS: ALBUTEROL SULF 2.5 MG/0.5ML(0.5%) NEB SOLN NEB SCH ×5 (00:11→23:48)
[2019-05-11] MEDS: InsuLIN REG 1unit/0.01ml Soln (100units/ml) SC SCH ×5 (00:30→23:42)
[2019-05-11] MEDS: ACCU-CHEK COMFORT CURVE STRIP VI SCH ×5 (00:30→23:42)
[2019-05-11] MEDS: PIPERACILLIN-TAZOB 3.375GM 100 ML IV SCH ×3 (00:30→12:38)
[2019-05-11 05:00] VITALS: BP 112/74
[2019-05-11 06:52] LABS: Hematocrit 38.7 % (41.0-53.0); Mean Corpuscular Hemoglobin 29.5 pg (28.0-32.0); Mean Corpuscular Hgb Conc. 33.7 g/dL (32.0-36.0); Mean Corpuscular Volume 87.5 fL (80.0-100.0); Platelet Count (auto) 388 10^3/uL (140-450); Red Blood Cells 4.42 10^6/uL (4.5-5.90); Red Cell Distribution Width 13.6 % (11.8-14.3); White Blood Cell 10.6 10^3/uL (4.4-10.8)
--- NOTE | 2019-05-11 07:00 | NUR ---
OPENING NOTE ASSUMED CARE. PATIENT IN BED, USING ACCESSORY MUSCLES TO BREATH. O2 8% ON OXYMIZER PATIENT GET SOB WHILE AT REST. ABLE TO UNDERSTAND AND VERBALIZE POC. INSTRUCTED PATIENT TO CALL FOR HELP NEEDED, CALL LIGHT WITH IN REACH, BED IN LOWEST POSITION
[2019-05-11 07:09] LABS: Band Neutrophils % (manual) 0; Basophils % (manual) 0 (0.0-2.0); Blast Cells 0; Metamyelocytes % 0; Myelocytes % 0; Promyelocytes % 0; Reactive Lymphocytes 0
--- NOTE | 2019-05-11 07:10 | NUR ---
Decreased liter flow to 8l/m post Resp TX. found PT on 10 l/n oximizer. Sats=98%
[2019-05-11 07:15] LABS: BUN/Creatinine Ratio 15.2; Calcium 8.4 mg/dL (8.5-10.1); Potassium 4.1 mmol/L (3.5-5.1)
--- NOTE | 2019-05-11 07:20 | NUR ---
Endorsed care to Liz ORR. Patient is resting in bed with oxygen infusing at 10L/min via Oxymizer. Call light is within reach.
--- NOTE | 2019-05-11 07:21 | NUR ---
Assumed care of patient Patient resting in bed with even and unlabored respirations, no distress noted. Instructed patient on POC, fall precautions and to call for assistance as needed. Patient verbalized understanding. Fall precautions in place with bed in lowest locked position with call light within reach. Will continue to monitor q1hr & PRN. Orienting KIRBY Ortega.
[2019-05-11] MEDS: Pro-Stat SF 30ml Vanilla PO SCH ×2 (08:16→17:53)
[2019-05-11] MEDS: Glucerna Carbsteady SHAKE Vanilla 8oz PO SCH ×3 (08:16→17:53)
[2019-05-11 09:00] VITALS: BP 111/79
--- NOTE | 2019-05-11 10:00 | NUR ---
MED MEDICATIONS GIVEN TO PATIENT, PT IS COMFORTABLE.
[2019-05-11] MEDS: FLUCONAZOLE 100 MG TAB PO SCH (10:51)
[2019-05-11] MEDS: FUROSEMIDE 20 MG TAB PO SCH (10:53)
[2019-05-11] MEDS: PANTOPRAZOLE 40 MG TAB PO SCH (10:53)
[2019-05-11] MEDS: ACETAMINOPHEN 325 MG TAB PO PRN (10:53)
[2019-05-11 10:54] LABS: Eosinophils % (manual) 20 (0-7); Lymphocytes % (manual) 11 (10.0-50.0); Monocytes % (manual) 5 (0-12)
[2019-05-11] MEDS: ENOXAPARIN SOD 40 MG/0.4 ML SYRINGE SC SCH (10:54)
[2019-05-11] MEDS: DOXYCYCLINE 100 MG TAB/CAP PO SCH ×2 (10:54→21:35)
[2019-05-11] MEDS: INSULIN LANTUS (GLARGINE) 1 /0.01ml (100units/ml) SC SCH ×2 (11:03→21:35)
--- NOTE | 2019-05-11 12:18 | NUR ---
Post TX decreased liter flow 6 l/m. PT tolerating 02 therapy.
[2019-05-11 13:00] VITALS: BP 114/75
--- NOTE | 2019-05-11 13:13 | NUR ---
Patient ambulating with prn physical therapist. Patient tolerated well.
--- NOTE | 2019-05-11 13:20 | NUR ---
PHYSICAL THERAPY PATIENT WALKING DOWN THE MCLAIN WITH PT.
--- NOTE | 2019-05-11 14:45 | NUR ---
Post TX placed nasal cannula with humidifier to liter flow 4 l/m. PT tolerating 02 change at this time.
[2019-05-11 17:00] VITALS: BP 111/61
--- NOTE | 2019-05-11 17:26 | NUR ---
PT DOING WELL WITH AMBULATION. NURSING TO ASSIST PATIENT NEEDED.
[2019-05-11] MEDS: LEVOFLOXACIN 750MG 150 ML IV SCH (17:51)
--- NOTE | 2019-05-11 19:09 | NUR ---
CARE ENDORSED REPORT GIVEN TO RN REGARDING POC. ENDORSED REASSESSMENT OF B/P MEDICATION AND PARAMETERS. PATIENT IN BED RESTING, UNLABORED BREATHING. FAMILY AT BED SIDE. BED IN LOWEST POSITION FOR SAFEST, CALL LIGHT WITH IN REACH. INSTRUCTED PATIENT TO CALL FOR ASSIST NEEDED.
--- NOTE | 2019-05-11 19:12 | NUR ---
ENDORSED CARE REPORT GIVEN TO RN, PATIENT IN BED, RESTING COMFORTABLE WITH O2 4%VIA NASAL CANULA, PATIENT TOLERATING WELL. EXPLAINED TO PATIENT POC, INSTRUCTED TO CALL FOR ASSISTANCE NEEDED. CALL LIGHT WITH IN REACH, BED IN LOWEST POSITION FOR SAFETY.
--- NOTE | 2019-05-11 19:21 | NUR ---
Opening Shift Note Assumed care of patient, awake and alert x4. No S/S of distress/SOB or pain. Oxygen is running at 4L/min via nasal cannula. Call light is within reach, side rails upx2, bed is in lowest position. Instructed on POC and to call for assist PRN, will continue to monitor for changes Q1hr and PRN.
[2019-05-11 20:39] VITALS: BP 111/61
[2019-05-11 21:38] VITALS: BP 116/83
[2019-05-12 05:03] VITALS: BP 121/75
[2019-05-12] MEDS: InsuLIN REG 1unit/0.01ml Soln (100units/ml) SC SCH ×3 (06:16→17:37)
[2019-05-12] MEDS: ACCU-CHEK COMFORT CURVE STRIP VI SCH ×3 (06:17→17:36)
[2019-05-12] MEDS: ALBUTEROL SULF 2.5 MG/0.5ML(0.5%) NEB SOLN NEB SCH ×3 (06:58→19:01)
--- NOTE | 2019-05-12 07:30 | NUR ---
Opening Shift Note RECEIVED REPORT FROM NOC RN. Assumed care of patient, awake and alert. PATIENT ON OXYGEN AT 4 LPM VIA NASAL CANNULA WITH no S/S of distress/SOB or pain. BED IN LOWEST, LOCKED POSITION WITH SIDERAILS UP x2 AND CALL LIGHT WITHIN REACH. Instructed on POC and to call for assist PRN, will continue to monitor for changes Q1hr and PRN.
[2019-05-12] MEDS: Glucerna Carbsteady SHAKE Vanilla 8oz PO SCH ×3 (07:49→18:02)
[2019-05-12] MEDS: Pro-Stat SF 30ml Vanilla PO SCH ×2 (07:49→18:02)
[2019-05-12 09:00] VITALS: BP 125/82
[2019-05-12] MEDS: DOXYCYCLINE 100 MG TAB/CAP PO SCH ×2 (09:45→22:02)
[2019-05-12] MEDS: FLUCONAZOLE 100 MG TAB PO SCH (09:45)
[2019-05-12] MEDS: ENOXAPARIN SOD 40 MG/0.4 ML SYRINGE SC SCH (09:45)
[2019-05-12] MEDS: PANTOPRAZOLE 40 MG TAB PO SCH (09:45)
[2019-05-12] MEDS: FUROSEMIDE 20 MG TAB PO SCH (09:45)
[2019-05-12] MEDS: INSULIN LANTUS (GLARGINE) 1 /0.01ml (100units/ml) SC SCH ×2 (09:53→22:03)
[2019-05-12 13:00] VITALS: BP 124/83
--- NOTE | 2019-05-12 16:11 | NUR ---
Nutrition Follow-up Notes Wt.: 118.9 kg Pt`s awake and alert. per records pt with PNA sepsis. pt with no distress noted currently on CCHO 60 gm mech soft diet with prostat 1 packet bid with adequate PO of 100% x 1 per RN doc Est. Needs ABW 106 [id number] kcal (23-25 kcal/kgBW), 106-116 gms pro (1.0-1.1 gms/kgBW). Will continue to monitor pertinent labs and reassess nutrient need prn Labs: GLU 174 H Skin: Hill scale 20, low risk, per online marketing director. GI: Pt had 1 BM 05/11 per online marketing director. PES: Altered nutrition related lab values r/t current/chronic medical condition aeb elev A1C severe hypoalb resolved, hyperglycemia Decreased nutrient needs r/t adiposity aeb pt`s high BMI of 34.8 kg2 Will continue to monitor PO intake, pertinent labs, skin status and weight trends. F/u in 3-5 days. Additional Rec.: 1.) refer to CDE on DC. 2) continue current plan of care
[2019-05-12 16:58] VITALS: BP 117/78
[2019-05-12] MEDS: LEVOFLOXACIN 750MG 150 ML IV SCH (17:22)
--- NOTE | 2019-05-12 19:28 | NUR ---
Opening Shift Note Assumed care of patient, awake and alert x4. No S/S of distress/SOB or pain. Call light is within reach, side rails up x2, bed is in lowest position. Instructed on POC and to call for assist PRN, will continue to monitor for changes Q1hr and PRN.
--- NOTE | 2019-05-12 20:10 | NUR ---
IV insertion to left hand IV access obtained, via clean sterile technique by inserting 22 gauge catheter at the left hand after 1 attempt(s). IV secured properly. No trauma to site. Patient tolerated well.
--- NOTE | 2019-05-12 20:15 | NUR ---
IV removal from RFA due to infiltration IV DC'd with clean sterile technique, catheter fully intact. Pressure dressing applied to site. Patient tolerated well.
[2019-05-12 21:51] VITALS: BP 108/76
[2019-05-13] MEDS: InsuLIN REG 1unit/0.01ml Soln (100units/ml) SC SCH ×5 (00:28→23:56)
[2019-05-13] MEDS: ACCU-CHEK COMFORT CURVE STRIP VI SCH ×5 (00:29→23:56)
[2019-05-13] MEDS: ALBUTEROL SULF 2.5 MG/0.5ML(0.5%) NEB SOLN NEB SCH ×4 (00:53→18:51)
[2019-05-13 05:08] VITALS: BP 113/77
--- NOTE | 2019-05-13 08:00 | NUR ---
OPENING SHIFT NOTE ASSUMED CARE OF PT. PT IS AWAKE AND ALERT. NO SOB OR SIGNS OF DISTRESS NOTED. PT DID NOT HAVE NC ON. CHECKED O2 SAT AND REEDUCATED ON IMPORTANCE OF NC. INSTRUCTED ON POC AND TO CALL FOR HELP PRN. BED IN LOWEST POSITION WITH SIDE RAILS UP X2. WILL CONTINUE TO MONITOR.
[2019-05-13 08:51] LABS: INR 1.08 (0.9-1.15)
[2019-05-13 09:00] VITALS: BP 100/55
[2019-05-13] MEDS: PANTOPRAZOLE 40 MG TAB PO SCH (11:00)
[2019-05-13] MEDS: ENOXAPARIN SOD 40 MG/0.4 ML SYRINGE SC SCH (11:00)
[2019-05-13] MEDS: DOXYCYCLINE 100 MG TAB/CAP PO SCH ×2 (11:00→21:32)
[2019-05-13] MEDS: FUROSEMIDE 20 MG TAB PO SCH (11:01)
[2019-05-13] MEDS: FLUCONAZOLE 100 MG TAB PO SCH (11:01)
[2019-05-13] MEDS: INSULIN LANTUS (GLARGINE) 1 /0.01ml (100units/ml) SC SCH ×2 (11:09→21:33)
[2019-05-13] MEDS: Pro-Stat SF 30ml Vanilla PO SCH ×2 (12:06→18:12)
[2019-05-13] MEDS: Glucerna Carbsteady SHAKE Vanilla 8oz PO SCH ×3 (12:06→18:11)
[2019-05-13] MEDS ORDERED: POTASSIUM CHL 20 Meq TABLET PO ONE (12:45)
[2019-05-13] MEDS ORDERED: FUROSEMIDE 40 MG/4 ML VIAL IV ONE (12:45)
[2019-05-13 13:00] VITALS: BP 142/79
[2019-05-13 13:27] LABS: Hematocrit 38.6 % (41.0-53.0); Hemoglobin 13.2 g/dL (13.5-17.5); Mean Corpuscular Hemoglobin 29.3 pg (28.0-32.0); Mean Corpuscular Hgb Conc. 34.2 g/dL (32.0-36.0); Mean Corpuscular Volume 85.5 fL (80.0-100.0); Platelet Count (auto) 360 10^3/uL (140-450); Red Blood Cells 4.51 10^6/uL (4.5-5.90); Red Cell Distribution Width 13.2 % (11.8-14.3); White Blood Cell 11.8 10^3/uL (4.4-10.8)
[2019-05-13 13:29] LABS: Basophils % (manual) 0 (0.0-2.0); Blast Cells 0; Metamyelocytes % 0; Myelocytes % 0; Promyelocytes % 0; Reactive Lymphocytes 0
[2019-05-13 13:47] LABS: BUN/Creatinine Ratio 18.7; Calcium 8.4 mg/dL (8.5-10.1); Potassium 4.1 mmol/L (3.5-5.1)
[2019-05-13 14:29] LABS: Band Neutrophils % (manual) 2; Eosinophils % (manual) 22 (0-7); Lymphocytes % (manual) 8 (10.0-50.0); Monocytes % (manual) 7 (0-12)
[2019-05-13 17:00] VITALS: BP 117/76
[2019-05-13] MEDS: PIPERACILLIN-TAZOB 3.375GM 100 ML IV SCH ×2 (18:11→23:34)
--- NOTE | 2019-05-13 19:40 | NUR ---
assumed care, pt. awake, no c/o pain, not in distress.
--- NOTE | 2019-05-13 19:50 | NUR ---
assumed care, pt. confused, non- verbal, relatives at bedside, repositioned pt. not in distress. Addendum: 05/13/19 at 2321 by Starla Acevedo RN above note not on this patient.
[2019-05-13 22:00] VITALS: BP 115/81
[2019-05-14] MEDS: ALBUTEROL SULF 2.5 MG/0.5ML(0.5%) NEB SOLN NEB SCH ×4 (00:40→19:09)
[2019-05-14 04:47] VITALS: BP 113/76
[2019-05-14] MEDS: PIPERACILLIN-TAZOB 3.375GM 100 ML IV SCH ×4 (05:31→23:34)
[2019-05-14] MEDS: ACCU-CHEK COMFORT CURVE STRIP VI SCH ×4 (05:32→23:34)
[2019-05-14] MEDS: InsuLIN REG 1unit/0.01ml Soln (100units/ml) SC SCH ×4 (05:32→23:34)
--- NOTE | 2019-05-14 07:50 | NUR ---
Patient in bed, awake, oriented x4, on O2 at 4 LPM via long nasal cannula. Coughing noted. No acute distress noted.
[2019-05-14] MEDS: Glucerna Carbsteady SHAKE Vanilla 8oz PO SCH ×3 (08:14→17:41)
[2019-05-14] MEDS: Pro-Stat SF 30ml Vanilla PO SCH ×2 (08:15→17:41)
--- NOTE | 2019-05-14 08:54 | NUR ---
Dr. Acevedo at bedside for Pulmonology Consult.
[2019-05-14 09:00] VITALS: BP 107/76
[2019-05-14] MEDS: ENOXAPARIN SOD 40 MG/0.4 ML SYRINGE SC SCH (09:32)
[2019-05-14] MEDS: FLUCONAZOLE 100 MG TAB PO SCH (09:33)
[2019-05-14] MEDS: INSULIN LANTUS (GLARGINE) 1 /0.01ml (100units/ml) SC SCH ×2 (09:33→21:40)
[2019-05-14] MEDS: DOXYCYCLINE 100 MG TAB/CAP PO SCH ×2 (09:33→21:40)
[2019-05-14] MEDS: PANTOPRAZOLE 40 MG TAB PO SCH (09:33)
[2019-05-14] MEDS: POTASSIUM CHL 20 Meq TABLET PO SCH (09:33)
[2019-05-14 13:00] VITALS: BP 120/78
--- NOTE | 2019-05-14 13:50 | NUR ---
Dr. Ramirez at bedside. made aware that patient complained of itching and pain on the right forearm, (former IV site, IV line has been removed two days ago as stated by the patient). Dr. Ramirez to put an order for Ultrasound on the right forearm. also explained to the patient that he needs a follow up appointment with a doctor when discharged, patient has no medical insurance.
--- NOTE | 2019-05-14 15:25 | NUR ---
Patient stated he does not want anymore blood thinner. Patient is referring to [facility]. Patient is ambulatory to the bathroom. Will inform the MD.
[2019-05-14 17:00] VITALS: BP 111/78
[2019-05-14 19:12] VITALS: BP 120/78
--- NOTE | 2019-05-14 19:55 | NUR ---
assumed care, pt. awake, no c/o pain, not in distress.
[2019-05-14 22:00] VITALS: BP 118/83
[2019-05-15] MEDS: ALBUTEROL SULF 2.5 MG/0.5ML(0.5%) NEB SOLN NEB SCH ×4 (00:28→18:33)
[2019-05-15 05:00] VITALS: BP 110/73
[2019-05-15] MEDS: InsuLIN REG 1unit/0.01ml Soln (100units/ml) SC SCH ×4 (05:27→23:33)
[2019-05-15] MEDS: PIPERACILLIN-TAZOB 3.375GM 100 ML IV SCH ×4 (05:27→23:30)
[2019-05-15] MEDS: ACCU-CHEK COMFORT CURVE STRIP VI SCH ×4 (05:28→23:33)
[2019-05-15 06:47] LABS: Hematocrit 37.9 % (41.0-53.0); Hemoglobin 12.9 g/dL (13.5-17.5); Mean Corpuscular Hemoglobin 29.4 pg (28.0-32.0); Mean Corpuscular Hgb Conc. 33.9 g/dL (32.0-36.0); Mean Corpuscular Volume 86.8 fL (80.0-100.0); Platelet Count (auto) 332 10^3/uL (140-450); Red Blood Cells 4.37 10^6/uL (4.5-5.90); Red Cell Distribution Width 13.6 % (11.8-14.3); White Blood Cell 10.2 10^3/uL (4.4-10.8)
[2019-05-15 07:06] LABS: BUN/Creatinine Ratio 16.5; Calcium 8.4 mg/dL (8.5-10.1); Potassium 4.1 mmol/L (3.5-5.1)
[2019-05-15 07:24] LABS: Band Neutrophils % (manual) 0; Basophils % (manual) 0 (0.0-2.0); Blast Cells 0; Metamyelocytes % 0; Myelocytes % 0; Promyelocytes % 0; Reactive Lymphocytes 0
--- NOTE | 2019-05-15 08:00 | NUR ---
PT RESTING IN BED, NO DISTRESS NOTED. PT REPORTS NO PAIN AT THIS TIME. DR MORRISON SAW PATIENT AND ORDERS TO TITRATE 02 DOWN, BUT KEEP 02 SAT ABOVE 90. PT GOING DOWN FOR CHEST X RAY NOW. WILL CONTINUE TO MONITOR.
[2019-05-15 08:01] LABS: Eosinophils % (manual) 37 (0-7); Lymphocytes % (manual) 14 (10.0-50.0); Monocytes % (manual) 7 (0-12)
[2019-05-15 09:03] VITALS: BP 115/76
[2019-05-15] MEDS: Glucerna Carbsteady SHAKE Vanilla 8oz PO SCH ×3 (09:29→18:15)
[2019-05-15] MEDS: Pro-Stat SF 30ml Vanilla PO SCH ×2 (09:29→18:16)
[2019-05-15] MEDS: FLUCONAZOLE 100 MG TAB PO SCH (09:30)
[2019-05-15] MEDS: PANTOPRAZOLE 40 MG TAB PO SCH (09:31)
[2019-05-15] MEDS: POTASSIUM CHL 20 Meq TABLET PO SCH (09:31)
[2019-05-15] MEDS: DOXYCYCLINE 100 MG TAB/CAP PO SCH ×2 (09:31→21:09)
[2019-05-15] MEDS: INSULIN LANTUS (GLARGINE) 1 /0.01ml (100units/ml) SC SCH ×2 (09:32→21:09)
[2019-05-15] MEDS: ENOXAPARIN SOD 40 MG/0.4 ML SYRINGE SC SCH (09:35)
--- NOTE | 2019-05-15 09:57 | NUR ---
PT TITRATED FROM 4 L 02 TO 3 L 02, PER DR MORRISON REQUEST. Addendum: 05/15/19 at 0958 by FILIBERTO LOPEZ RN BS 220, LANTUS GIVEN. PT REFUSED LOVENOX.
[2019-05-15 13:05] VITALS: BP 118/78
--- NOTE | 2019-05-15 15:46 | NUR ---
Nutrition Follow-up Notes Wt.: 117.4 kg Pt`s awake and alert. per records pt with PNA sepsis. pt with no distress noted currently on CCHO 60 gm mech soft diet with prostat 1 packet bid with adequate PO of 100% x 3 per RN doc Est. Needs ABW 106 [id number] kcal (23-25 kcal/kgBW), 106-116 gms pro (1.0-1.1 gms/kgBW). Will continue to monitor pertinent labs and reassess nutrient need prn Labs: GLU 220 H Skin: Hill scale 20, low risk, per title insurance sales representative. GI: Pt had 1 BM 05/14 per title insurance sales representative. PES: Altered nutrition related lab values r/t current/chronic medical condition aeb elev A1C severe hypoalb resolved, hyperglycemia Decreased nutrient needs r/t adiposity aeb pt`s high BMI of 34.8 kg2 Will continue to monitor PO intake, pertinent labs, skin status and weight trends. F/u in 3-5 days. Additional Rec.: 1.) refer to CDE on DC. 2) continue current plan of care
[2019-05-15 17:00] VITALS: BP 122/70
--- NOTE | 2019-05-15 17:11 | NUR ---
Patient is a self pay and was provided with home oxygen information from for Julianne Ph:) Ph:) Home Oxygen concentrator Monthly rental $99.79 Portable oxygen regulator Monthly Rental $30.00 E Portable tanks each $18.00 Delivery fee $75.00 This is for the initial set up. After the set up the patient would be charged $18 per additional tank needed along with $55 delivery fee for each delivery. Patient verbalize understanding.
[2019-05-15] MEDS ORDERED: FUROSEMIDE 40 MG/4 ML VIAL IV ONE (17:15)
--- NOTE | 2019-05-15 19:19 | NUR ---
assumed care, pt. awake, no c/o pain, not in distress.
[2019-05-15 22:00] VITALS: BP 108/70
[2019-05-16] MEDS: ALBUTEROL SULF 2.5 MG/0.5ML(0.5%) NEB SOLN NEB SCH ×4 (00:12→19:24)
[2019-05-16] MEDS: PIPERACILLIN-TAZOB 3.375GM 100 ML IV SCH ×3 (05:36→17:28)
[2019-05-16] MEDS: InsuLIN REG 1unit/0.01ml Soln (100units/ml) SC SCH ×3 (05:37→17:29)
[2019-05-16] MEDS: ACCU-CHEK COMFORT CURVE STRIP VI SCH ×3 (05:37→17:30)
[2019-05-16 06:23] VITALS: BP 113/79
[2019-05-16 06:38] LABS: Hematocrit 39.4 % (41.0-53.0); Hemoglobin 13.3 g/dL (13.5-17.5); Mean Corpuscular Hemoglobin 29.4 pg (28.0-32.0); Mean Corpuscular Hgb Conc. 33.8 g/dL (32.0-36.0); Platelet Count (auto) 331 10^3/uL (140-450); Red Blood Cells 4.52 10^6/uL (4.5-5.90); Red Cell Distribution Width 13.6 % (11.8-14.3); White Blood Cell 10.5 10^3/uL (4.4-10.8)
[2019-05-16 06:43] LABS: Potassium 3.8 mmol/L (3.5-5.1)
[2019-05-16 06:49] LABS: BUN/Creatinine Ratio 12.5; Calcium 8.9 mg/dL (8.5-10.1)
[2019-05-16 07:09] LABS: Basophils % (manual) 0 (0.0-2.0); Blast Cells 0; Metamyelocytes % 0; Myelocytes % 0; Promyelocytes % 0; Reactive Lymphocytes 0
[2019-05-16 08:10] LABS: Band Neutrophils % (manual) 1; Eosinophils % (manual) 26 (0-7); Lymphocytes % (manual) 14 (10.0-50.0); Monocytes % (manual) 4 (0-12)
--- NOTE | 2019-05-16 08:10 | NUR ---
PT RESTING IN BED, NO DISTRESS NOTED. PT TITRATED 02 DOWN TO 2L NC PER DR MORRISON, PT O2 SAT IS 90%. PT REPORTS NO PAIN AT THIS TIME, WILL CONTINUE TO MONITOR.
[2019-05-16 08:30] VITALS: BP 127/75
[2019-05-16] MEDS: ENOXAPARIN SOD 40 MG/0.4 ML SYRINGE SC SCH (10:00)
[2019-05-16] MEDS: Glucerna Carbsteady SHAKE Vanilla 8oz PO SCH ×3 (10:08→17:28)
[2019-05-16] MEDS: POTASSIUM CHL 20 Meq TABLET PO SCH (10:08)
[2019-05-16] MEDS: Pro-Stat SF 30ml Vanilla PO SCH ×2 (10:08→17:29)
[2019-05-16] MEDS: DOXYCYCLINE 100 MG TAB/CAP PO SCH ×2 (10:08→21:37)
[2019-05-16] MEDS: FLUCONAZOLE 100 MG TAB PO SCH (10:09)
[2019-05-16] MEDS: INSULIN LANTUS (GLARGINE) 1 /0.01ml (100units/ml) SC SCH ×2 (10:09→21:38)
[2019-05-16] MEDS: PANTOPRAZOLE 40 MG TAB PO SCH (10:09)
[2019-05-16 12:00] VITALS: BP 121/65
[2019-05-16 17:00] VITALS: BP 120/67
--- NOTE | 2019-05-16 19:45 | NUR ---
Opening Shift Note Assumed care of patient, awake and alert. No S/S of distress/SOB or pain. Instructed on POC and to call for assist PRN, patient verbalized understanding, call light within reach, will continue to monitor for changes Q1hr and PRN.
--- NOTE | 2019-05-16 21:42 | NUR ---
Respiratory note: ASSESSED PT FOR PRN TX . PT WAS AWAKE AND ALERT SITTING AT THE EDGE OF THE BED. NO RESP DISTRESS NOTED. HR 107, RR 16, SPO2 95% ON 2L N/C. BS ARE DIMINISHED. PATIENT KNOWS TO HAVE RT PAGED IF TX IS NEEDED.
[2019-05-16 22:00] VITALS: BP 108/67
[2019-05-17] MEDS: PIPERACILLIN-TAZOB 3.375GM 100 ML IV SCH ×2 (00:17→06:27)
[2019-05-17] MEDS: InsuLIN REG 1unit/0.01ml Soln (100units/ml) SC SCH ×5 (00:18→23:49)
[2019-05-17] MEDS: ACCU-CHEK COMFORT CURVE STRIP VI SCH ×5 (00:18→23:49)
[2019-05-17] MEDS: ALBUTEROL SULF 2.5 MG/0.5ML(0.5%) NEB SOLN NEB SCH ×4 (00:44→19:24)
--- NOTE | 2019-05-17 06:31 | NUR ---
IV on LH is hurting, removed with catheter intact IV insertion IV access obtained, via clean sterile technique by inserting 22 gauge catheter at RW after [] attempt(s). IV secured properly. No trauma to site. Patient tolerated well. NOTE: []
[2019-05-17 06:35] VITALS: BP 112/65
--- NOTE | 2019-05-17 07:35 | NUR ---
Opening Shift Note: Assumed care of patient, awake and alert. No S/S of distress/SOB or pain. Patient on 2LPM NC at this time. Bed in lowest locked position, side rails up x 2, call light within reach. Patient instructed on POC and to call for assist PRN, will continue to monitor for changes Q1hr and PRN.
[2019-05-17] MEDS: Pro-Stat SF 30ml Vanilla PO SCH ×2 (08:39→18:01)
[2019-05-17] MEDS: Glucerna Carbsteady SHAKE Vanilla 8oz PO SCH ×3 (08:39→18:00)
[2019-05-17 09:00] VITALS: BP 114/68
[2019-05-17] MEDS: DOXYCYCLINE 100 MG TAB/CAP PO SCH ×2 (09:31→22:43)
[2019-05-17] MEDS: PANTOPRAZOLE 40 MG TAB PO SCH (09:31)
[2019-05-17] MEDS: POTASSIUM CHL 20 Meq TABLET PO SCH (09:31)
[2019-05-17] MEDS: INSULIN LANTUS (GLARGINE) 1 /0.01ml (100units/ml) SC SCH ×2 (09:32→22:43)
[2019-05-17] MEDS: FLUCONAZOLE 100 MG TAB PO SCH (09:32)
[2019-05-17] MEDS: ENOXAPARIN SOD 40 MG/0.4 ML SYRINGE SC SCH (09:33)
[2019-05-17] MEDS ORDERED: LEVOFLOXACIN 250 MG TAB PO ONE (11:30)
[2019-05-17 13:00] VITALS: BP 117/72
--- NOTE | 2019-05-17 13:00 | NUR ---
Dr. Chay camp.
--- NOTE | 2019-05-17 13:14 | NUR ---
Per Dr. Valentine orders patient downgraded to Med/Surg from Tele. Patient now on 1 LPM NC. Will continue to monitor.
--- NOTE | 2019-05-17 13:30 | NUR ---
Tele box sent to ICU.
[2019-05-17 17:01] VITALS: BP 106/68
--- NOTE | 2019-05-17 18:26 | NUR ---
O2 sat of 94% on 1 LPM NC. Will continue to monitor.
--- NOTE | 2019-05-17 19:24 | NUR ---
Closing note: Patient resting in bed. No S/S of pain, distress or SOB at this time. Care endorsed to NOC Rosaline Ac
[2019-05-17 21:11] VITALS: BP 120/78
[2019-05-17 22:00] VITALS: BP 112/71
[2019-05-18] MEDS: ALBUTEROL SULF 2.5 MG/0.5ML(0.5%) NEB SOLN NEB SCH ×5 (00:13→18:51)
--- NOTE | 2019-05-18 05:59 | NUR ---
Respiratory note: SCHEDULED MED NEB TX NOT GIVEN. PT WAS AWAKE AND ALERT, NO RESP DISTRESS NOTED. PT STATED HE HAD A NOSE BLEED EARLIER AND DID NOT WANT A TX AT THIS TIME. HR 106, RR 16, SPO2 90% ON ROOM AIR. BS ARE DIMINISHED. I SUGGESTED HE PUT HIS OXYGEN BACK ON. WILL CONTINUE TO MONITOR.
[2019-05-18 06:23] VITALS: BP 113/79
[2019-05-18] MEDS: ACCU-CHEK COMFORT CURVE STRIP VI SCH ×3 (06:35→18:04)
[2019-05-18] MEDS: InsuLIN REG 1unit/0.01ml Soln (100units/ml) SC SCH ×3 (06:35→18:00)
--- NOTE | 2019-05-18 07:30 | NUR ---
Opening Shift Note Assumed care of patient, awake and alert. No S/S of distress/SOB or pain. Instructed on POC and to call for assist PRN, will continue to monitor for changes Q1hr and PRN.
[2019-05-18] MEDS: Pro-Stat SF 30ml Vanilla PO SCH ×2 (08:00→18:04)
[2019-05-18] MEDS: Glucerna Carbsteady SHAKE Vanilla 8oz PO SCH ×3 (08:00→18:04)
[2019-05-18 09:00] VITALS: BP 132/79
[2019-05-18] MEDS: ENOXAPARIN SOD 40 MG/0.4 ML SYRINGE SC SCH (10:00)
[2019-05-18] MEDS ORDERED: LEVOFLOXACIN 250 MG TAB PO SCH (10:00)
[2019-05-18] MEDS: PANTOPRAZOLE 40 MG TAB PO SCH (10:14)
[2019-05-18] MEDS: DOXYCYCLINE 100 MG TAB/CAP PO SCH (10:14)
[2019-05-18] MEDS: FLUCONAZOLE 100 MG TAB PO SCH (10:15)
[2019-05-18] MEDS: INSULIN LANTUS (GLARGINE) 1 /0.01ml (100units/ml) SC SCH (10:20)
[2019-05-18 10:23] LABS: Hematocrit 39.1 % (41.0-53.0); Hemoglobin 13.5 g/dL (13.5-17.5); Mean Corpuscular Hemoglobin 29.5 pg (28.0-32.0); Mean Corpuscular Hgb Conc. 34.6 g/dL (32.0-36.0); Mean Corpuscular Volume 85.3 fL (80.0-100.0); Platelet Count (auto) 336 10^3/uL (140-450); Red Blood Cells 4.58 10^6/uL (4.5-5.90); Red Cell Distribution Width 13.8 % (11.8-14.3); White Blood Cell 10.1 10^3/uL (4.4-10.8)
[2019-05-18 10:33] LABS: Band Neutrophils % (manual) 0; Basophils % (manual) 0 (0.0-2.0); Blast Cells 0; Metamyelocytes % 0; Myelocytes % 0; Promyelocytes % 0; Reactive Lymphocytes 0
[2019-05-18 10:38] LABS: Potassium 4.2 mmol/L (3.5-5.1)
[2019-05-18 10:40] LABS: BUN/Creatinine Ratio 12.1
[2019-05-18 10:48] LABS: Eosinophils % (manual) 25 (0-7); Lymphocytes % (manual) 16 (10.0-50.0); Monocytes % (manual) 5 (0-12)
[2019-05-18 13:00] VITALS: BP 123/87
[2019-05-18 17:10] VITALS: BP 107/72
[2019-05-18 21:55] VITALS: BP 114/70
[2019-05-19] MEDS: DOXYCYCLINE 100 MG TAB/CAP PO SCH ×3 (00:15→21:50)
[2019-05-19] MEDS: INSULIN LANTUS (GLARGINE) 1 /0.01ml (100units/ml) SC SCH ×3 (00:15→21:51)
[2019-05-19] MEDS: InsuLIN REG 1unit/0.01ml Soln (100units/ml) SC SCH ×5 (00:16→23:27)
[2019-05-19] MEDS: ACCU-CHEK COMFORT CURVE STRIP VI SCH ×5 (00:16→23:27)
[2019-05-19] MEDS: ALBUTEROL SULF 2.5 MG/0.5ML(0.5%) NEB SOLN NEB SCH ×4 (00:17→19:54)
[2019-05-19 05:00] VITALS: BP 125/76
[2019-05-19] MEDS: Pro-Stat SF 30ml Vanilla PO SCH ×2 (08:00→18:13)
[2019-05-19] MEDS: Glucerna Carbsteady SHAKE Vanilla 8oz PO SCH ×3 (08:00→18:13)
[2019-05-19 09:00] VITALS: BP 103/70
[2019-05-19] MEDS: ENOXAPARIN SOD 40 MG/0.4 ML SYRINGE SC SCH (10:00)
--- NOTE | 2019-05-19 10:30 | NUR ---
Noticed patient was on room air. Checked O2 saturation on Room air On room air O2 saturation found to be 89%.
[2019-05-19] MEDS: PANTOPRAZOLE 40 MG TAB PO SCH (10:33)
[2019-05-19] MEDS: FLUCONAZOLE 100 MG TAB PO SCH (10:33)
[2019-05-19] MEDS: FUROSEMIDE 20 MG TAB PO SCH (10:34)
[2019-05-19 13:00] VITALS: BP 115/74
[2019-05-19 17:00] VITALS: BP 124/82
[2019-05-19 20:10] VITALS: BP 113/75
--- NOTE | 2019-05-19 20:10 | NUR ---
Opening Shift Note Assumed care of patient, awake and alert. No S/S of distress/SOB or pain. Respirations even and unlabored. Patient is on 2 liters of oxygen via nasal cannula. Instructed on POC and to call for assist PRN, will continue to monitor for changes Q1hr and PRN.
[2019-05-19 22:00] VITALS: BP 113/75
--- NOTE | 2019-05-19 22:00 | NUR ---
TEMPERATURE OF 100.2 F NOTED. ICE PACKS PLACED UNDER EACH OF THE PATIENT'S ARMPITS. PATIENT DENIES CHILLS. PATIENT HAS NO S/S OF DISTRESS AT THIS TIME. WILL REASSESS PATIENT TEMPERATURE.
--- NOTE | 2019-05-19 23:15 | NUR ---
TEMPERATURE IS NOW 99.4 F AFTER PLACING ICE PACKS UNDER EACH OF THE PATIENT'S ARMPITS. PATIENT DENIES HAVING CHILLS. PATIENT HAS NO S/S OF DISTRESS.
--- NOTE | 2019-05-19 23:16 | NUR ---
PATIENT NOTED TO BE ON ROOM AIR PULSE OXIMETER READING 88% Patient was placed on 2 liters of oxygen via nasal cannula, pulse oximeter reading of 92%. Patient educated to keep nasal cannula on for oxygenation. Patient verbalized understanding.
[2019-05-20] MEDS: ALBUTEROL SULF 2.5 MG/0.5ML(0.5%) NEB SOLN NEB SCH ×4 (01:13→19:20)
[2019-05-20 04:55] VITALS: BP 113/69
--- NOTE | 2019-05-20 05:28 | NUR ---
PATIENT OFF OF NASAL CANNULA AMBULATING FROM WEST TO CENTRAL NURSING STATION Patient pulse oximeter reading 88% on room air when patient returned to assigned room. 2 liters of oxygen via nasal cannula applied to patient and pulse oximeter reading increased to 92%. Patient educated to call the nurse before getting up to walk so that portable oxygen can be put on first. Patient verbalized understanding.
[2019-05-20] MEDS: ACCU-CHEK COMFORT CURVE STRIP VI SCH ×4 (05:36→23:35)
[2019-05-20] MEDS: InsuLIN REG 1unit/0.01ml Soln (100units/ml) SC SCH ×4 (05:37→23:45)
[2019-05-20 06:09] LABS: Hematocrit 35.9 % (41.0-53.0); Hemoglobin 12.2 g/dL (13.5-17.5); Mean Corpuscular Hemoglobin 29.2 pg (28.0-32.0); Mean Corpuscular Hgb Conc. 33.9 g/dL (32.0-36.0); Mean Corpuscular Volume 86.1 fL (80.0-100.0); Platelet Count (auto) 279 10^3/uL (140-450); Red Blood Cells 4.17 10^6/uL (4.5-5.90); Red Cell Distribution Width 13.8 % (11.8-14.3); White Blood Cell 9.6 10^3/uL (4.4-10.8)
[2019-05-20 06:12] LABS: Calcium 8.6 mg/dL (8.5-10.1); Potassium 3.8 mmol/L (3.5-5.1)
[2019-05-20 06:16] LABS: BUN/Creatinine Ratio 14.9
[2019-05-20 06:50] LABS: Basophils % (manual) 0 (0.0-2.0); Blast Cells 0; Metamyelocytes % 0; Myelocytes % 0; Promyelocytes % 0; Reactive Lymphocytes 0
--- NOTE | 2019-05-20 07:00 | NUR ---
CLOSING NOTE No S/S of distress/SOB or pain. Respirations even and unlabored. Patient is on 2 liters of oxygen via nasal cannula.
[2019-05-20 07:13] LABS: Band Neutrophils % (manual) 1; Eosinophils % (manual) 34 (0-7); Lymphocytes % (manual) 11 (10.0-50.0); Monocytes % (manual) 5 (0-12)
--- NOTE | 2019-05-20 07:45 | NUR ---
ASSESSMENT FINDS ALERT APPROPRIATE. GOOD HISTORIAN SHARES EXPERIENCE OF HOSPITAL STAY. LUNG SOUNDS DIMINISHED IN ALL DEXTER. O2 NC 2L. DISCUSSED POC. VISITS ASKS TO SPEAK WITH STAFF MEMBER ISIDRO REGARDING LACK OF INSURANCE COVERAGE.
[2019-05-20] MEDS: Pro-Stat SF 30ml Vanilla PO SCH ×2 (08:00→18:30)
[2019-05-20 09:00] VITALS: BP 124/79
[2019-05-20] MEDS: FUROSEMIDE 20 MG TAB PO SCH (11:14)
[2019-05-20] MEDS ORDERED: TUBERCULIN PPD 5 UNIT/0.1 ML ID ONE (11:15)
[2019-05-20] MEDS: PANTOPRAZOLE 40 MG TAB PO SCH (11:15)
[2019-05-20] MEDS: DOXYCYCLINE 100 MG TAB/CAP PO SCH ×2 (11:15→21:23)
[2019-05-20] MEDS: Glucerna Carbsteady SHAKE Vanilla 8oz PO SCH ×3 (11:17→19:03)
--- NOTE | 2019-05-20 11:18 | NUR ---
MD ROUNDS. TO PERFORM TB TEST.
[2019-05-20] MEDS: INSULIN LANTUS (GLARGINE) 1 /0.01ml (100units/ml) SC SCH ×2 (11:59→23:45)
[2019-05-20 13:00] VITALS: BP 123/90
[2019-05-20 17:00] VITALS: BP 120/97
--- NOTE | 2019-05-20 19:16 | NUR ---
PT AND HIS HAVE SPOKE WITH ISIDRO RE INSURANCE. PT [place] IN [facility]. WOULD LIKE TO EXPLORE THE POSSIBILITY OF HAVING HIS PCP SPEAK WITH THE HOSPITALIST HERE TO COORDINATE MOVING HIM TO HIS HOME TOWN FOR F/U AND CONTINUED CARE.
--- NOTE | 2019-05-20 19:30 | NUR ---
Opening Shift Note Assumed care of patient, awake and alert. No S/S of distress/SOB or pain. Family at bedside. Instructed on POC and to call for assist PRN, will continue to monitor for changes Q1hr and PRN.
[2019-05-20 20:05] VITALS: BP 120/97
[2019-05-20 21:56] VITALS: BP 127/81
[2019-05-21] MEDS: ALBUTEROL SULF 2.5 MG/0.5ML(0.5%) NEB SOLN NEB SCH ×4 (00:37→18:47)
--- NOTE | 2019-05-21 00:37 | NUR ---
Respiratory note: PT SEEN FOR SCHEDULED MED NEB TX AT 0037. PTS TX NOT GIVEN AT THIS TIME. WHEN I TRIED TO WAKE HIM UP HE DID NOT RESPOND AND PULLED THE SHEETS OF HIS HEAD. PT DID NOT APPEAR TO BE IN ANY RESPIRATORY DISTRESS. NO POX OBTAINED.
[2019-05-21 05:00] VITALS: BP 147/90
[2019-05-21] MEDS: ACCU-CHEK COMFORT CURVE STRIP VI SCH ×2 (06:07→11:07)
[2019-05-21] MEDS: InsuLIN REG 1unit/0.01ml Soln (100units/ml) SC SCH ×2 (06:14→11:07)
[2019-05-21] MEDS: Pro-Stat SF 30ml Vanilla PO SCH ×2 (08:00→17:36)
[2019-05-21] MEDS: Glucerna Carbsteady SHAKE Vanilla 8oz PO SCH ×3 (08:00→17:36)
[2019-05-21 08:15] VITALS: BP 118/82
[2019-05-21] MEDS: INSULIN LANTUS (GLARGINE) 1 /0.01ml (100units/ml) SC SCH (10:00)
[2019-05-21] MEDS: PANTOPRAZOLE 40 MG TAB PO SCH (10:11)
[2019-05-21] MEDS: DOXYCYCLINE 100 MG TAB/CAP PO SCH (10:11)
[2019-05-21] MEDS: FUROSEMIDE 20 MG TAB PO SCH (10:12)
--- NOTE | 2019-05-21 12:01 | NUR ---
Nutrition Follow-up Notes Wt.: 118.5 kg Pt`s sleeping with no family by bedside. pt with no distress noted currently on CCHO 60 gm mech soft diet with glucerna 1 carton tid with adequate PO of 100% x 3 per RN doc Est. Needs ABW 106 [id number] kcal (23-25 kcal/kgBW), 106-116 gms pro (1.0-1.1 gms/kgBW). Will continue to monitor pertinent labs and reassess nutrient need prn Labs: GLU 144 H. rest lab wnl for today Skin: Hill scale 20, low risk, per pull socket assembler. GI: Pt had 1 BM today per pull socket assembler. PES: Altered nutrition related lab values r/t current/chronic medical condition aeb elev A1C severe hypoalb resolved, hyperglycemia Decreased nutrient needs r/t adiposity aeb pt`s high BMI of 34.8 kg2 Will continue to monitor PO intake, pertinent labs, skin status and weight trends. F/u in 3-5 days. Additional Rec.: 1.) refer to CDE on DC. 2) continue current plan of care
[2019-05-21 12:46] VITALS: BP 114/83
[2019-05-21] MEDS ORDERED: DEXTROSE (50%) 50ML SYRG IV PRN (13:15)
[2019-05-21] MEDS ORDERED: METF-372 PO (16:03)
[2019-05-21 16:27] VITALS: BP 118/65
[2019-05-21] MEDS ORDERED: ACCU-CHEK COMFORT CURVE STRIP VI SCH (17:00)
[2019-05-21] MEDS ORDERED: InsuLIN REG 1unit/0.01ml Soln (100units/ml) SC SCH (17:00)
--- NOTE | 2019-05-21 17:21 | NUR ---
D/C Planning Per SS consult for Oxygen 2l/min. Patient has no insurance and was provided with information regarding the cost of oxygen from . Patient verbalize understanding. Contact Ph:) Fax:) faxed medical records requesting for them to contact Ph:) patient regarding payment. Informed KIRBY Booker.
[2019-05-21 17:23] VITALS: BP 118/65
[2019-05-21] MEDS: ACETAMINOPHEN 325 MG TAB PO PRN (17:33)
[2019-05-21] MEDS ORDERED: metFORMIN HYDROCHLORIDE 500 MG TAB PO SCH (18:00)
--- NOTE | 2019-05-21 18:36 | NUR ---
PER PT, OXYGEN COMPANY CALLED THEM AND WILL DELIVER PORTABLE OXYGEN TO THE ROOM. PT AND AWARE. NOTED PT TO HAVE TEMP OF 100.8 AT 1730. MEDICATED WITH TYLENOL 650 PO, TEMP NOW 99.6. ALL DISCHARGE INSTRUCTIONS AND RX GIVEN TO PT AND , ALL APPROPRIATE PAPERWORK SIGNED. VERBALIZED UNDERSTANDING.
--- NOTE | 2019-05-21 18:47 | NUR ---
ASSESSED PT @ THIS TIME FOR MED NEB TX. PT'S HR WAS 139 AND SPO2 93% ON 2L NC. TX WAS HELD DUE TO HIGH HR. PT STATES HE IS BEING DISCHARGED. NO DISTRESS NOTED. @ BEDSIDE.
--- NOTE | 2019-05-21 19:16 | NUR ---
PORTABLE O2 DELIVERED. PT DISCHARGED HOME VIA CAR WITH IN ATTENDANCE. EDUCATED PT AND ON O2 TANK AND DELIVERY. VERBALIZED UNDERSTANDING.
[2019-05-21] MEDS ORDERED: INSULIN LANTUS (GLARGINE) 1 /0.01ml (100units/ml) SC SCH (22:00)
[2019-05-22] MEDS ORDERED: INSULIN LANTUS (GLARGINE) 1 /0.01ml (100units/ml) SC SCH (07:00)
== END 2019-05-21 19:00 | disposition home or self-care (01) | DRG 871 ==
LOC: ER 11:08 → EDBD 11:08 → TELE 11:09 → ICU WEST 05-03 23:47 → DOU IN ICU 05-04 17:06 → TELE-WESTW 05-10 00:24 → WEST WING 05-17 13:09
PROVIDERS: ADMIT Internal Medicine; ATTEND Internal Medicine
PROC: 5A09357 Assistance with Respiratory Ventilation, Less than 24 Consecutive Hours, Continuous Positive Airway Pressure (ICD-10-PCS; principal; 2019-05-05)
PROC: 5A09357 Assistance with Respiratory Ventilation, Less than 24 Consecutive Hours, Continuous Positive Airway Pressure (ICD-10-PCS; 2019-05-06)
PROC: 5A09357 Assistance with Respiratory Ventilation, Less than 24 Consecutive Hours, Continuous Positive Airway Pressure (ICD-10-PCS; 2019-05-07)
DX: A41.9 Sepsis, unspecified organism (principal); J18.9 Pneumonia, unspecified organism; J96.01 Acute respiratory failure with hypoxia; E11.10 Type 2 diabetes mellitus with ketoacidosis without coma; E87.1 Hypo-osmolality and hyponatremia; E87.2 Acidosis; E86.0 Dehydration; E87.6 Hypokalemia; E87.8 Other disorders of electrolyte and fluid balance, not elsewhere classified; R65.20 Severe sepsis without septic shock; I45.10 Unspecified right bundle-branch block; R00.0 Tachycardia, unspecified; Z83.3 Family history of diabetes mellitus; Z82.49 Family history of ischemic heart disease and other diseases of the circulatory system; Z88.8 Allergy status to other drugs, medicaments and biological substances
CPT/HCPCS: 36415; 36600; 71045; 71046; 71250; 80048; 80053; 80202; 81001; 82010; 82805; 82962; 83036; 83605; 83735; 83880; 84100; 84443; 85007; 85025; 85027; 85610; 86703; 87040; 87081; 87086; 87088; 87186; 87804; 93005; 93306; 93971; 94640; 94660; 97110; 97116; 97163; 97530; 99291; A4615; G0378; J0696; J1815; J1956; J2405; J2543; J3480; J3490